=== PATIENT | male | born 1970 | race African-American/Black ===

== ENCOUNTER 2016-10-17 21:07 | Inpatient (IN) | payer MEDICAID ==
[~2016-10-17] VITALS: Ht 170.2 cm; Wt 53.1 kg
[2016-10-17] MEDS ORDERED: IPRATROPIUM BROMIDE (0.02%) 0.5MG/2.5ML NEB HHN ONE (21:15)
[2016-10-17] MEDS ORDERED: ALBUTEROL (0.5%) 2.5MG/0.5ML NEB HHN ONE (21:15)
[2016-10-17] MEDS ORDERED: METHYLPREDNISOLONE SOD SUCC 125 MG/2 ML VIAL IV ONE (21:15)
[2016-10-17] MEDS ORDERED: KETAMINE HCL 50 MG/ML 10ML IV ONE (21:15)
[2016-10-17] MEDS ORDERED: MAGNESIUM 2 G PREMIX 50 ML IV ONE (21:15)
[2016-10-17 21:58] LABS: BG BASE EXCESS -6.2 mmol/L (-2.0-2.0); BG BILEVEL POS AIRWAY PRESSURE 20/8; BG CARBOXYHEMOGLOBIN 1.9 % (0.5-1.5); BG DEOXYHEMOGLOBIN 6.3 % (0.0-5.0); BG FRACTION INSPIRED OXYGEN 100; BG HCO3 ACT 19.5 mmol/L (22.0-26.0); BG METHEMOGLOBIN 0.4 % (0.0-1.5); BG OXYGEN SATURATION 93.6 % (92.0-98.5); BG OXYHEMOGLOBIN 91.4 % (94.0-97.0); BG PCO2 39.4 mmHg (35.0-45.0); BG PH 7.313 (7.350-7.450); BG PO2 76.4 mmHg (75.0-100.0); BG SAMPLE SITE RIGHT RADIAL; BG TOTAL HEMOGLOBIN 13.5 g/dL (12.0-18.0); BG VENT MODE MASK - BIPAP; BG VENT RATE 18 set
[2016-10-17] MEDS ORDERED: LORAZEPAM 2MG/ML CPJ IV ONE (22:45)
[2016-10-17 23:00] LABS: HEMATOCRIT. 37.5 % (42.0-52.0); HEMOGLOBIN. 12.3 g/dL (14.0-18.0); MEAN CORPUSCULAR HEMOGLOBIN 27.2 pg (28.0-32.0); MEAN CORPUSCULAR HGB CONC 32.8 g/dL (31.0-37.0); MEAN CORPUSCULAR VOLUME 82.9 fL (80.0-94.0); MEAN PLATELET VOLUME 7.2 fl (7.4-10.4); PLATELET 561 x1000/uL (130-400); RED BLOOD CELL COUNT 4.52 mill/uL (4.7-6.1); RED CELL DISTRIBUTION WIDTH 16.1 % (11.6-14.6); WHITE BLOOD COUNT 20.8 x1000/uL (4.5-11.0)
[2016-10-17 23:03] LABS: CALCIUM 8.6 mg/dL (8.5-10.1); CHLORIDE 99 mEq/L (98-107); DIFFERENTIAL COMMENT 1; INDEX HEMOLYSI 1 (1-3); INDEX ICTERIC 1 (1-4); INDEX LIPEMIC 1 (1-3)
[2016-10-17 23:04] LABS: ANION GAP 18; CARBON DIOXIDE 23 mEq/L (21-32); UREA NITROGEN BLOOD 14 mg/dL (7-21)
[2016-10-17 23:12] LABS: NT PRO B-TYPE NATRIURETIC PEP 30161 pg/mL (5-125); TROPONIN I 0.03 ng/mL (0.00-0.04); eGFR > 60 mL/min (>60)
[2016-10-17] MEDS ORDERED: CLONIDINE 0.2MG TABLET PO NR (23:15)
[2016-10-17] MEDS ORDERED: LEVOFLOXACIN 500MG PREMIX 100 ML IV NR (23:15)
[2016-10-17] MEDS ORDERED: MEROPENEM 1,000 MG in SODIUM CHLORIDE 0.9% 100 ML IV NR (23:15)
[2016-10-17] MEDS ORDERED: NITROGLYCERIN OINT 1GM/INCH UDPKT TD NR (23:15)
[2016-10-17 23:19] LABS: ANISOCYTOSIS 1+; PLATELET ESTIMATE INCREASED
[2016-10-17] MEDS ORDERED: FUROSEMIDE 40MG/4ML VIAL IVP NR (23:30)
[2016-10-17] MEDS ORDERED: NITROGLYCERIN 50MG PREMIX 250 ML IV ONE (23:45)
[2016-10-18] VITALS (60 sets, daily range): BP systolic 108–177; BP diastolic 37–136
[2016-10-18] MEDS ORDERED: LEVOFLOXACIN 500MG PREMIX 100 ML IV SCH (01:15)
[2016-10-18] MEDS ORDERED: AZITHROMYCIN 500 MG in DEXT 5% WATER 250 ML IV SCH (01:15)
[2016-10-18] MEDS ORDERED: CLONIDINE 0.1MG TABLET PO PRN (01:15)
[2016-10-18] MEDS ORDERED: MAGNESIUM/ALUMINUM HYDROXIDE/SIMETHICONE 30ML UDC PO PRN (01:15)
[2016-10-18] MEDS ORDERED: ACETAMINOPHEN 325MG TABLET PO PRN (01:15)
[2016-10-18 01:21] LABS: MAGNESIUM 2.1 mg/dL (1.8-2.4)
[2016-10-18] MEDS: METHYLPREDNISOLONE SOD SUCC 125 MG/2 ML VIAL IV SCH ×4 (04:24→18:10)
[2016-10-18 05:20] LABS: HEMATOCRIT. 36.6 % (42.0-52.0); HEMOGLOBIN. 12.1 g/dL (14.0-18.0); MEAN CORPUSCULAR HEMOGLOBIN 26.7 pg (28.0-32.0); MEAN CORPUSCULAR VOLUME 81.1 fL (80.0-94.0); MEAN PLATELET VOLUME 7.2 fl (7.4-10.4); PLATELET 591 x1000/uL (130-400); RED BLOOD CELL COUNT 4.52 mill/uL (4.7-6.1); RED CELL DISTRIBUTION WIDTH 15.5 % (11.6-14.6); WHITE BLOOD COUNT 38.6 x1000/uL (4.5-11.0)
[2016-10-18 05:24] LABS: DIFFERENTIAL COMMENT 1
[2016-10-18 05:48] LABS: CREATINE KINASE MB FRACTION 1.1 ng/mL (0.5-3.6); TROPONIN I 0.04 ng/mL (0.00-0.04)
[2016-10-18 05:53] LABS: ALANINE AMINOTRANSFERASE 44 IU/L (13-61); CALCIUM 8.8 mg/dL (8.5-10.1); CARBON DIOXIDE 27 mEq/L (21-32); HDL CHOLESTEROL 49 mg/dL (40-59); INDEX HEMOLYSI 1 (1-3); INDEX ICTERIC 1 (1-4); INDEX LIPEMIC 1 (1-3); LDL CHOLESTEROL 92 mg/dL (5-100); UREA NITROGEN BLOOD 14 mg/dL (7-21); eGFR > 60 mL/min (>60)
[2016-10-18 06:26] LABS: ANION GAP 16; CHLORIDE 97 mEq/L (98-107); THYROID STIMULATING HORMONE 0.11 uIU/mL (0.36-3.74); TRIGLYCERIDE 83 mg/dL (0-150)
[2016-10-18 07:04] LABS: ANISOCYTOSIS 1+; PLATELET ESTIMATE INCREASED
[2016-10-18 07:58] LABS: BG CARBOXYHEMOGLOBIN 0.6 % (0.5-1.5); BG FRACTION INSPIRED OXYGEN 100; BG HCO3 ACT 25.4 mmol/L (22.0-26.0); BG METHEMOGLOBIN 0.2 % (0.0-1.5); BG OXYHEMOGLOBIN 99.2 % (94.0-97.0); BG PH 7.467 (7.350-7.450); BG PRESSURE SUPPORT 12; BG SAMPLE SITE RIGHT BRACHIAL; BG TOTAL HEMOGLOBIN 13.1 g/dL (12.0-18.0); BG VENT MODE MASK - BIPAP; BG VENT RATE 20 set
[2016-10-18] MEDS ORDERED: FUROSEMIDE 100MG/10ML VIAL IVP ONE (08:15)
[2016-10-18] MEDS ORDERED: LISINOPRIL 20MG TABLET PO SCH (10:15)
[2016-10-18] MEDS ORDERED: FUROSEMIDE 40MG/4ML VIAL IV SCH (10:15)
[2016-10-18] MEDS ORDERED: AZITHROMYCIN XX SCH (10:15)
[2016-10-18] MEDS: ASPIRIN 81MG EC TABLET PO SCH (10:27)
[2016-10-18 10:30] LABS: BG BASE EXCESS 4.2 mmol/L (-2.0-2.0); BG BILEVEL POS AIRWAY PRESSURE 20/8; BG CARBOXYHEMOGLOBIN 0.2 % (0.5-1.5); BG DEOXYHEMOGLOBIN 0.2 % (0.0-5.0); BG HCO3 ACT 27.9 mmol/L (22.0-26.0); BG METHEMOGLOBIN 0.4 % (0.0-1.5); BG OXYGEN SATURATION 99.8 % (92.0-98.5); BG OXYHEMOGLOBIN 99.2 % (94.0-97.0); BG PCO2 38.4 mmHg (35.0-45.0); BG PH 7.479 (7.350-7.450); BG PO2 460.9 mmHg (75.0-100.0); BG SAMPLE SITE RIGHT BRACHIAL; BG TOTAL HEMOGLOBIN 12.9 g/dL (12.0-18.0); BG VENT MODE MASK - BIPAP; BG VENT RATE 20 set
[2016-10-18] MEDS: ENOXAPARIN 40MG/0.4ML SYR SUBCUT SCH (10:30)
[2016-10-18] MEDS ORDERED: VANCOMYCIN 1 G PREMIX 200 ML IV SCH (10:45)
[2016-10-18] MEDS ORDERED: POTASSIUM CHLORIDE 20MEQ TABLET SR PO NR (11:00)
[2016-10-18] MEDS ORDERED: LORAZEPAM 2MG/ML CPJ IV PRN (11:00)
[2016-10-18] MEDS ORDERED: LISINOPRIL (11:05)
[2016-10-18] MEDS ORDERED: CLONIDINE (11:05)
[2016-10-18] MEDS ORDERED: XANAX (11:05)
[2016-10-18] MEDS ORDERED: NORCO (11:05)
[2016-10-18] MEDS: IPRATROPIUM/ALBUTEROL 0.5-3(2.5)MG/3ML NEB INH PRN ×2 (11:21→15:31)
[2016-10-18] MEDS ORDERED: DEXTROSE 50% WATER 50ML SYRINGE IV PRN (11:45)
[2016-10-18] MEDS: AZITHROMYCIN 500 MG in DEXT 5% WATER 250 ML IV SCH (11:48)
[2016-10-18] MEDS ORDERED: DILTIAZEM HCL 60MG TABLET PO SCH (12:00)
[2016-10-18] MEDS: INSULIN LISPRO 100 UNITS/ML SUBCUT SCH ×3 (12:18→21:08)
[2016-10-18] MEDS: BLOOD SUGAR DIAGNOSTIC STRIP TEST SCH ×3 (12:50→20:23)
[2016-10-18 13:07] LABS: MAGNESIUM 1.6 mg/dL (1.8-2.4)
[2016-10-18 13:08] LABS: CLARITY URINE CLEAR (CLEAR); COLOR URINE YELLOW (YELLOW); GLUCOSE URINE NEGATIVE (NEGATIVE); KETONES URINE NEGATIVE (NEGATIVE); LEUKOCYTE ESTERASE URINE NEGATIVE (NEGATIVE); NITRITE URINE NEGATIVE (NEGATIVE); OCCULT BLOOD URINE TRACE (NEGATIVE); PH URINE 7.5 (4.5-8.0); PROTEIN URINE NEGATIVE (NEGATIVE); SPECIFIC GRAVITY URINE 1.007 (1.005-1.030); UROBILINOGEN URINE 0.2 E.U./dL (0.2-1.0)
[2016-10-18 13:18] LABS: LACTIC ACID 2.3 mmol/L (0.4-2.0)
[2016-10-18 13:24] LABS: SQUAMOUS EPITHELIAL CELL URINE NONE SEEN /lpf (RARE/1+)
[2016-10-18 13:25] LABS: BACTERIA URINE TRACE; WBC URINE 0-2 /hpf (0-2)
[2016-10-18 13:34] LABS: *AMPHETAMINES SCREEN URINE NEGATIVE (NEGATIVE); *BARBITURATES SCREEN URINE NEGATIVE (NEGATIVE); *BENZODIAZEPINES SCREEN URINE NEGATIVE (NEGATIVE); *COCAINE SCREEN URINE NEGATIVE (NEGATIVE); CANNABINOID URINE SCREEN NEGATIVE (NEGATIVE); ECSTASY MDMA SCREEN URINE NEGATIVE (NEGATIVE); METHADONE URINE SCREEN NEGATIVE (NEGATIVE); OPIATES URINE SCREEN NEGATIVE (NEGATIVE); PHENCYCLIDINE URINE SCREEN NEGATIVE (NEGATIVE)
[2016-10-18] MEDS: VANCOMYCIN 1 G PREMIX 200 ML IV SCH ×2 (13:45→21:07)
[2016-10-18] MEDS ORDERED: MAGNESIUM 2 G PREMIX 50 ML IV NR (14:45)
[2016-10-18] MEDS: NITROGLYCERIN 50MG PREMIX 250 ML IV PRN ×2 (15:26→21:42)
[2016-10-18 17:02] LABS: CREATINE KINASE 31 IU/L (39-308); CREATINE KINASE MB FRACTION < 0.5 ng/mL (0.5-3.6); INDEX HEMOLYSI 1 (1-3); TROPONIN I 0.05 ng/mL (0.00-0.04)
[2016-10-18] MEDS ORDERED: METOCLOPRAMIDE HCL 10MG/2ML VIAL IV SCH (18:00)
[2016-10-18] MEDS: DILTIAZEM HCL 90MG TABLET PO SCH ×2 (18:11→23:34)
[2016-10-18] MEDS: HYDRALAZINE HCL 50MG TABLET PO SCH ×2 (18:11→21:06)
[2016-10-18] MEDS ORDERED: LEVOFLOXACIN 750MG PREMIX 150 ML IV SCH (21:00)
[2016-10-18] MEDS: LISINOPRIL 20MG TABLET PO SCH (21:06)
[2016-10-18] MEDS ORDERED: METHYLPREDNISOLONE SOD SUCC 125 MG/2 ML VIAL IV SCH (22:00)
[2016-10-18] MEDS: AZTREONAM 2 GM in DEXT 5% WATER 100 ML IV SCH (23:33)
[2016-10-18] MEDS: SULFAMETHOXAZOLE/TRIMETHOPRIM 800/160MG TABLET PO SCH (23:44)
[2016-10-19] VITALS (56 sets, daily range): BP systolic 96–150; BP diastolic 38–89
[2016-10-19] MEDS: METHYLPREDNISOLONE SOD SUCC 125 MG/2 ML VIAL IV SCH ×3 (02:47→09:01)
[2016-10-19 05:31] LABS: HEMATOCRIT. 33.1 % (42.0-52.0); HEMOGLOBIN. 10.9 g/dL (14.0-18.0); MEAN CORPUSCULAR HEMOGLOBIN 26.8 pg (28.0-32.0); MEAN CORPUSCULAR HGB CONC 33.1 g/dL (31.0-37.0); MEAN CORPUSCULAR VOLUME 81.1 fL (80.0-94.0); MEAN PLATELET VOLUME 7.8 fl (7.4-10.4); PLATELET 539 x1000/uL (130-400); RED BLOOD CELL COUNT 4.08 mill/uL (4.7-6.1); RED CELL DISTRIBUTION WIDTH 15.7 % (11.6-14.6); WHITE BLOOD COUNT 26.2 x1000/uL (4.5-11.0)
[2016-10-19] MEDS: DILTIAZEM HCL 90MG TABLET PO SCH ×2 (05:33→11:19)
[2016-10-19] MEDS: VANCOMYCIN 1 G PREMIX 200 ML IV SCH ×3 (05:33→23:08)
[2016-10-19 05:34] LABS: DIFFERENTIAL COMMENT 1
[2016-10-19] MEDS: SULFAMETHOXAZOLE/TRIMETHOPRIM 800/160MG TABLET PO SCH ×4 (05:34→23:19)
[2016-10-19] MEDS: HYDRALAZINE HCL 50MG TABLET PO SCH ×3 (05:34→22:00)
[2016-10-19 05:56] LABS: ALBUMIN 2.8 g/dL (3.4-5.0); ANION GAP 14; CALCIUM 8.5 mg/dL (8.5-10.1); CARBON DIOXIDE 31 mEq/L (21-32); CHLORIDE 90 mEq/L (98-107); INDEX HEMOLYSI 1 (1-3); INDEX ICTERIC 1 (1-4); INDEX LIPEMIC 1 (1-3); UREA NITROGEN BLOOD 23 mg/dL (7-21)
[2016-10-19 06:02] LABS: ALANINE AMINOTRANSFERASE 28 IU/L (13-61); T4 FREE 1.55 ng/dL (0.76-1.46); eGFR > 60 mL/min (>60)
[2016-10-19 07:30] LABS: PLATELET ESTIMATE INCREASED
[2016-10-19] MEDS: BLOOD SUGAR DIAGNOSTIC STRIP TEST SCH ×4 (08:00→21:09)
[2016-10-19] MEDS ORDERED: ATOVAQUONE 750MG/5ML PACKET PO SCH (08:20)
[2016-10-19 08:30] LABS: BG BASE EXCESS 4.7 mmol/L (-2.0-2.0); BG CARBOXYHEMOGLOBIN 0.8 % (0.5-1.5); BG DEOXYHEMOGLOBIN 7.3 % (0.0-5.0); BG FRACTION INSPIRED OXYGEN 21; BG HCO3 ACT 27.1 mmol/L (22.0-26.0); BG METHEMOGLOBIN 0.3 % (0.0-1.5); BG OXYGEN SATURATION 92.6 % (92.0-98.5); BG OXYHEMOGLOBIN 91.6 % (94.0-97.0); BG PCO2 32.9 mmHg (35.0-45.0); BG PH 7.533 (7.350-7.450); BG PO2 59.7 mmHg (75.0-100.0); BG SAMPLE SITE RIGHT RADIAL; BG TOTAL HEMOGLOBIN 12.4 g/dL (12.0-18.0); BG VENT MODE ROOM AIR
[2016-10-19] MEDS: LISINOPRIL 20MG TABLET PO SCH ×2 (09:00→21:13)
[2016-10-19] MEDS: AZTREONAM 2 GM in DEXT 5% WATER 100 ML IV SCH ×2 (09:00→21:49)
[2016-10-19] MEDS: PANTOPRAZOLE SODIUM 40 MG/VIAL IV SCH (09:01)
[2016-10-19] MEDS: ASPIRIN 81MG EC TABLET PO SCH (09:01)
[2016-10-19] MEDS: FUROSEMIDE 40MG/4ML VIAL IVP SCH (09:01)
[2016-10-19] MEDS: INSULIN LISPRO 100 UNITS/ML SUBCUT SCH ×4 (09:02→21:00)
[2016-10-19] MEDS: ENOXAPARIN 40MG/0.4ML SYR SUBCUT SCH (09:03)
[2016-10-19] MEDS ORDERED: POTASSIUM CHLORIDE 20MEQ TABLET SR PO NR (10:30)
[2016-10-19] MEDS: AZITHROMYCIN 500 MG in DEXT 5% WATER 250 ML IV SCH (11:18)
[2016-10-19] MEDS: SPIRONOLACTONE 25MG TABLET PO SCH (12:59)
[2016-10-19] MEDS: CARVEDILOL 25MG TABLET PO SCH (21:12)
[2016-10-20] VITALS (11 sets, daily range): BP systolic 94–126; BP diastolic 69–89
[2016-10-20] MEDS: HYDRALAZINE HCL 50MG TABLET PO SCH ×3 (05:50→22:00)
[2016-10-20] MEDS: SULFAMETHOXAZOLE/TRIMETHOPRIM 800/160MG TABLET PO SCH ×2 (05:50→11:21)
[2016-10-20 07:24] LABS: HEMATOCRIT. 33.3 % (42.0-52.0); HEMOGLOBIN. 11.1 g/dL (14.0-18.0); MEAN CORPUSCULAR HGB CONC 33.4 g/dL (31.0-37.0); MEAN PLATELET VOLUME 7.7 fl (7.4-10.4); PLATELET 494 x1000/uL (130-400); RED BLOOD CELL COUNT 4.11 mill/uL (4.7-6.1); RED CELL DISTRIBUTION WIDTH 15.9 % (11.6-14.6); WHITE BLOOD COUNT 18.3 x1000/uL (4.5-11.0)
[2016-10-20 07:26] LABS: ANION GAP 16; CALCIUM 8.1 mg/dL (8.5-10.1); CARBON DIOXIDE 27 mEq/L (21-32); CHLORIDE 90 mEq/L (98-107); INDEX HEMOLYSI 1 (1-3); INDEX ICTERIC 1 (1-4); INDEX LIPEMIC 1 (1-3); MAGNESIUM 2.5 mg/dL (1.8-2.4); UREA NITROGEN BLOOD 35 mg/dL (7-21); eGFR > 60 mL/min (>60)
[2016-10-20] MEDS: BLOOD SUGAR DIAGNOSTIC STRIP TEST SCH ×4 (07:30→21:18)
[2016-10-20] MEDS: INSULIN LISPRO 100 UNITS/ML SUBCUT SCH ×4 (07:43→21:18)
[2016-10-20 07:55] LABS: DIFFERENTIAL COMMENT 1
[2016-10-20] MEDS: SPIRONOLACTONE 25MG TABLET PO SCH (08:28)
[2016-10-20] MEDS: PREDNISONE 20MG TABLET PO SCH (08:28)
[2016-10-20] MEDS: ASPIRIN 81MG EC TABLET PO SCH (08:28)
[2016-10-20] MEDS: CARVEDILOL 25MG TABLET PO SCH ×2 (08:28→21:05)
[2016-10-20] MEDS: PANTOPRAZOLE SODIUM 40 MG/VIAL IV SCH (08:29)
[2016-10-20] MEDS: LISINOPRIL 20MG TABLET PO SCH ×2 (08:29→21:04)
[2016-10-20] MEDS: FUROSEMIDE 40MG/4ML VIAL IVP SCH (08:29)
[2016-10-20] MEDS: ENOXAPARIN 40MG/0.4ML SYR SUBCUT SCH (08:29)
[2016-10-20] MEDS: VANCOMYCIN 1 G PREMIX 200 ML IV SCH ×2 (09:01→21:04)
[2016-10-20] MEDS: AZTREONAM 2 GM in DEXT 5% WATER 100 ML IV SCH ×2 (10:02→22:46)
[2016-10-20] MEDS: AZITHROMYCIN 500 MG in DEXT 5% WATER 250 ML IV SCH (11:19)
[2016-10-20] MEDS: ONDANSETRON HCL 4MG/2ML VIAL IV PRN ×2 (13:19→21:04)
[2016-10-20] MEDS: MEGESTROL ACETATE 400 MG/10 ML UDC PO SCH (13:19)
[2016-10-20 16:59] LABS: ALBUMIN 2.8 g/dL (3.4-5.0); BILIRUBIN DIRECT 0.3 mg/dL (0.0-0.2)
[2016-10-20 17:25] LABS: HEPATITIS B SURFACE ANTIGEN NEGATIVE
[2016-10-20 17:52] LABS: HEPATITIS C VIR.AB 0.13 INDEXVAL (0.00-0.80)
[2016-10-20 17:53] LABS: HEPATITIS B CORE AB IGM NEGATIVE
[2016-10-20 17:54] LABS: HEPATITIS A AB IGM NEGATIVE (NEGATIVE)
[2016-10-20 18:51] LABS: PREALBUMIN 12.6 mg/dL (20.0-40.0)
[2016-10-20 19:37] LABS: PLATELET ESTIMATE INCREASED
[2016-10-21] VITALS (8 sets, daily range): BP systolic 100–129; BP diastolic 61–93
[2016-10-21] MEDS: HYDRALAZINE HCL 50MG TABLET PO SCH ×2 (06:09→14:00)
[2016-10-21 06:58] LABS: HEMATOCRIT. 37.7 % (42.0-52.0); HEMOGLOBIN. 12.6 g/dL (14.0-18.0); MEAN CORPUSCULAR HGB CONC 33.3 g/dL (31.0-37.0); MEAN CORPUSCULAR VOLUME 81.1 fL (80.0-94.0); MEAN PLATELET VOLUME 7.5 fl (7.4-10.4); PLATELET 513 x1000/uL (130-400); RED BLOOD CELL COUNT 4.65 mill/uL (4.7-6.1); WHITE BLOOD COUNT 15.1 x1000/uL (4.5-11.0)
[2016-10-21 07:23] LABS: DIFFERENTIAL COMMENT 1
[2016-10-21] MEDS: BLOOD SUGAR DIAGNOSTIC STRIP TEST SCH ×2 (07:30→11:44)
[2016-10-21] MEDS: INSULIN LISPRO 100 UNITS/ML SUBCUT SCH ×2 (07:46→12:08)
[2016-10-21 07:59] LABS: ANION GAP 13; CALCIUM 8.1 mg/dL (8.5-10.1); CARBON DIOXIDE 27 mEq/L (21-32); CHLORIDE 91 mEq/L (98-107); INDEX HEMOLYSI 1 (1-3); INDEX ICTERIC 1 (1-4); INDEX LIPEMIC 1 (1-3); UREA NITROGEN BLOOD 40 mg/dL (7-21); eGFR > 60 mL/min (>60)
[2016-10-21] MEDS ORDERED: FUROSEMIDE 40MG TABLET PO SCH (08:00)
[2016-10-21] MEDS: ENOXAPARIN 40MG/0.4ML SYR SUBCUT SCH (08:23)
[2016-10-21] MEDS: VANCOMYCIN 1 G PREMIX 200 ML IV SCH (08:23)
[2016-10-21] MEDS: MEGESTROL ACETATE 400 MG/10 ML UDC PO SCH (08:23)
[2016-10-21] MEDS: ASPIRIN 81MG EC TABLET PO SCH (08:24)
[2016-10-21] MEDS: PANTOPRAZOLE SODIUM 40 MG/VIAL IV SCH (08:24)
[2016-10-21] MEDS: PREDNISONE 20MG TABLET PO SCH (08:24)
[2016-10-21] MEDS: CARVEDILOL 25MG TABLET PO SCH (08:25)
[2016-10-21] MEDS: SPIRONOLACTONE 25MG TABLET PO SCH (08:25)
[2016-10-21] MEDS: LISINOPRIL 20MG TABLET PO SCH (08:25)
[2016-10-21] MEDS: ONDANSETRON HCL 4MG/2ML VIAL IV PRN (08:49)
[2016-10-21] MEDS: AZTREONAM 2 GM in DEXT 5% WATER 100 ML IV SCH (09:43)
[2016-10-21] MEDS: AZITHROMYCIN 500 MG in DEXT 5% WATER 250 ML IV SCH (10:56)
[2016-10-21] MEDS ORDERED: DEXT 5% WATER 250 ML IV ONE (11:15)
[2016-10-21 13:15] LABS: PLATELET ESTIMATE INCREASED
== END 2016-10-21 15:20 | disposition left against medical advice (07) | DRG 720 ==
LOC: ER 21:10 → CVICU 10-18 01:05 → 5EST 10-19 22:45
PROVIDERS: ADMIT Internal Medicine; ATTEND Internal Medicine
PROC: 5A09457 Assistance with Respiratory Ventilation, 24-96 Consecutive Hours, Continuous Positive Airway Pressure (ICD-10-PCS; principal; 2016-10-18)
DX: A41.9 Sepsis, unspecified organism (principal); J96.21 Acute and chronic respiratory failure with hypoxia; E43 Unspecified severe protein-calorie malnutrition; I50.23 Acute on chronic systolic (congestive) heart failure; I11.0 Hypertensive heart disease with heart failure; J18.9 Pneumonia, unspecified organism; I42.9 Cardiomyopathy, unspecified; J45.909 Unspecified asthma, uncomplicated; J44.0 Chronic obstructive pulmonary disease with (acute) lower respiratory infection; E03.9 Hypothyroidism, unspecified; E11.65 Type 2 diabetes mellitus with hyperglycemia; F41.9 Anxiety disorder, unspecified; E87.1 Hypo-osmolality and hyponatremia; F11.90 Opioid use, unspecified, uncomplicated; J44.9 Chronic obstructive pulmonary disease, unspecified; T38.0X5A Adverse effect of glucocorticoids and synthetic analogues, initial encounter; Z53.21 Procedure and treatment not carried out due to patient leaving prior to being seen by health care provider; R00.0 Tachycardia, unspecified; Z68.1 Body mass index [BMI] 19.9 or less, adult; Z91.19 Patient's noncompliance with other medical treatment and regimen; Z72.0 Tobacco use
CPT/HCPCS: 36415; 36600; 51702; 71010; 74000; 78580; 80048; 80053; 80061; 80076; 80202; 80305; 81001; 82248; 82375; 82550; 82553; 82805; 82962; 83036; 83605; 83690; 83735; 83880; 84134; 84439; 84443; 84481; 84484; 85025; 85379; 86705; 86709; 86803; 87040; 87186; 87340; 87536; 93005; 93306; 93970; 94640; 94660; 96365; 96366; 96367; 96368; 96375; 97116; 97162; 97166; 99291; A6261; C9113; J0456; J1650; J1815; J1940; J1956; J2060; J2185; J2405; J2930; J3370; J3475; J3490; J7050; J7060; J7512; J7611; J7620

== ENCOUNTER 2018-07-06 02:39 | Inpatient (IN) | payer MEDICAID ==
[~2018-07-06] VITALS: Ht 175.3 cm; Wt 54.9 kg
[2018-07-06] VITALS (8 sets, daily range): BP systolic 129–158; BP diastolic 72–107
[~2018-07-06 02:39] MED LIST: CLONIDINE; LISINOPRIL; NORCO; XANAX
[2018-07-06] MEDS ORDERED: IPRATROPIUM BROMIDE (0.02%) 0.5MG/2.5ML NEB HHN STA (03:35)
[2018-07-06] MEDS ORDERED: METHYLPREDNISOLONE SOD SUCC 125 MG/2 ML VIAL IV STA (03:35)
[2018-07-06] MEDS ORDERED: ALBUTEROL (0.083%) 2.5MG/3ML NEB HHN STA (03:35)
[2018-07-06] MEDS ORDERED: SODIUM CHLORIDE 0.9% 1000ML BAG (SEPSIS BOLUS) IV ONE (03:45)
[2018-07-06] MEDS ORDERED: MAGNESIUM 2 G PREMIX 50 ML IV ONE (03:45)
[2018-07-06] MEDS ORDERED: ACETAMINOPHEN 500MG TABLET PO STA (04:26)
[2018-07-06] MEDS ORDERED: LEVOFLOXACIN 750MG PREMIX 150 ML IV ONE (04:30)
[2018-07-06] MEDS ORDERED: FUROSEMIDE 40MG/4ML VIAL IVP ONE (04:30)
[2018-07-06] MEDS ORDERED: AZTREONAM 2 GM in DEXT 5% WATER 100 ML IV ONE (04:30)
[2018-07-06 04:34] LABS: BASOPHILS % 0.9 % (0.0-2.0); EOSINOPHILS % 2.9 % (0.0-5.0); HEMATOCRIT. 39.1 % (42.0-52.0); LYMPHOCYTES % 10.7 % (20.0-50.0); MEAN CORPUSCULAR HEMOGLOBIN 29.6 pg (28.0-32.0); MEAN CORPUSCULAR VOLUME 88.7 fL (80.0-94.0); MEAN PLATELET VOLUME 8.6 fl (7.4-10.4); MONOCYTES % 8.1 % (2.0-8.0); NEUTROPHILS % 77.4 % (40.0-76.0); PLATELET 332 x1000/uL (130-400); RED CELL DISTRIBUTION WIDTH 13.2 % (11.6-14.6)
[2018-07-06 04:41] LABS: CHLORIDE 108 mEq/L (98-107); INR 1.1; PROTHROMBIN TIME 10.6 sec (9.1-11.1)
[2018-07-06 04:46] LABS: ETHANOL BLOOD < 10 mg/dL
[2018-07-06] MEDS ORDERED: MORPHINE SULFATE 2 MG/ML CPJ (NOT FOR IM USE) IV ONE (05:00)
[2018-07-06] MEDS ORDERED: MORPHINE SULFATE 4 MG/ML CPJ (NOT FOR IM USE) IV ONE (05:45)
[2018-07-06] MEDS ORDERED: MORPHINE SULFATE 4 MG/ML CPJ (NOT FOR IM USE) IV SCH (05:45)
[2018-07-06 06:02] LABS: *AMPHETAMINES SCREEN URINE NEGATIVE (NEGATIVE)
[2018-07-06 06:03] LABS: *BARBITURATES SCREEN URINE NEGATIVE (NEGATIVE); *COCAINE SCREEN URINE PRESUMTIVE POSITIVE (NEGATIVE); METHADONE URINE SCREEN NEGATIVE (NEGATIVE); OPIATES URINE SCREEN NEGATIVE (NEGATIVE)
[2018-07-06 06:04] LABS: CANNABINOID URINE SCREEN PRESUMTIVE POSITIVE (NEGATIVE); PHENCYCLIDINE URINE SCREEN NEGATIVE (NEGATIVE)
[2018-07-06 06:07] LABS: *BENZODIAZEPINES SCREEN URINE NEGATIVE (NEGATIVE)
[2018-07-06 06:13] LABS: CLARITY URINE CLEAR (CLEAR); COLOR URINE DARK YELLOW (YELLOW); KETONES URINE TRACE (NEGATIVE); LEUKOCYTE ESTERASE URINE NEGATIVE (NEGATIVE); NITRITE URINE NEGATIVE (NEGATIVE); OCCULT BLOOD URINE NEGATIVE (NEGATIVE); PH URINE 5.5 (4.5-8.0); PROTEIN URINE 2+ (NEGATIVE); SPECIFIC GRAVITY URINE 1.028 (1.005-1.030)
[2018-07-06] MEDS ORDERED: DOCUSATE SODIUM 100MG CAPSULE PO PRN (09:45)
[2018-07-06] MEDS ORDERED: GUAIFENESIN 200MG/10ML SUGAR FREE UDC PO PRN (09:45)
[2018-07-06] MEDS ORDERED: CLONIDINE 0.1MG TABLET PO PRN (09:45)
[2018-07-06] MEDS ORDERED: IPRATROPIUM/ALBUTEROL 0.5-3(2.5)MG/3ML NEB INH PRN (09:45)
[2018-07-06] MEDS ORDERED: MAGNESIUM/ALUMINUM HYDROXIDE/SIMETHICONE 30ML UDC PO PRN (09:45)
[2018-07-06] MEDS ORDERED: DIPHENHYDRAMINE 50MG/ML VIAL IV PRN (09:45)
[2018-07-06] MEDS ORDERED: ACETAMINOPHEN 325MG TABLET PO PRN (09:45)
[2018-07-06] MEDS ORDERED: ONDANSETRON HCL 4MG/2ML INJ IV PRN (09:45)
[2018-07-06] MEDS: PANTOPRAZOLE SODIUM 40 MG/VIAL IV SCH (11:04)
[2018-07-06] MEDS: ASPIRIN 81MG EC TABLET PO SCH (11:04)
[2018-07-06] MEDS: FUROSEMIDE 40MG/4ML VIAL IVP SCH (11:04)
[2018-07-06] MEDS: LISINOPRIL 10MG TABLET PO SCH (11:04)
[2018-07-06] MEDS: ENOXAPARIN 40MG/0.4ML SYR SUBCUT SCH (11:05)
[2018-07-06 16:11] LABS: CHLORIDE 102 mEq/L (98-107)
[2018-07-06] MEDS: NICOTINE 14MG PATCH TD SCH (16:35)
[2018-07-06] MEDS ORDERED: AZITHROMYCIN 500 MG TABLET PO NR (16:45)
[2018-07-06] MEDS: IPRATROPIUM/ALBUTEROL 0.5-3(2.5)MG/3ML NEB HHN SCH (20:24)
[2018-07-06] MEDS: BUDESONIDE 0.5MG/2ML NEB HHN SCH (20:24)
[2018-07-07] VITALS (11 sets, daily range): BP systolic 119–186; BP diastolic 64–109
[2018-07-07] MEDS: IPRATROPIUM/ALBUTEROL 0.5-3(2.5)MG/3ML NEB HHN SCH ×4 (01:57→20:10)
[2018-07-07 05:52] LABS: BASOPHILS % 0.2 % (0.0-2.0); EOSINOPHILS % 0.4 % (0.0-5.0); HEMATOCRIT. 34.4 % (42.0-52.0); HEMOGLOBIN. 11.9 g/dL (14.0-18.0); LYMPHOCYTES % 12.1 % (20.0-50.0); MEAN CORPUSCULAR HEMOGLOBIN 29.9 pg (28.0-32.0); MEAN CORPUSCULAR VOLUME 86.4 fL (80.0-94.0); MEAN PLATELET VOLUME 8.5 fl (7.4-10.4); MONOCYTES % 11.6 % (2.0-8.0); NEUTROPHILS % 75.7 % (40.0-76.0); PLATELET 349 x1000/uL (130-400); RED BLOOD CELL COUNT 3.98 mill/uL (4.7-6.1); RED CELL DISTRIBUTION WIDTH 13.3 % (11.6-14.6)
[2018-07-07] MEDS: BUDESONIDE 0.5MG/2ML NEB HHN SCH ×2 (07:59→20:10)
[2018-07-07] MEDS: PANTOPRAZOLE SODIUM 40 MG/VIAL IV SCH (08:54)
[2018-07-07] MEDS: ASPIRIN 81MG EC TABLET PO SCH (08:54)
[2018-07-07] MEDS: FUROSEMIDE 40MG/4ML VIAL IVP SCH (08:54)
[2018-07-07] MEDS: LISINOPRIL 10MG TABLET PO SCH (08:54)
[2018-07-07] MEDS: AZITHROMYCIN 250 MG TABLET PO SCH (08:54)
[2018-07-07] MEDS: NICOTINE 14MG PATCH TD SCH (08:55)
[2018-07-07] MEDS ORDERED: POTASSIUM CHLORIDE 20MEQ TABLET SR PO NR (11:45)
[2018-07-07] MEDS: ENOXAPARIN 40MG/0.4ML SYR SUBCUT SCH (12:07)
[2018-07-07] MEDS: HYDRALAZINE HCL 25MG TABLET PO SCH ×2 (15:32→20:34)
[2018-07-07] MEDS: AMLODIPINE 5MG TABLET PO SCH (20:34)
[2018-07-08] VITALS (8 sets, daily range): BP systolic 112–155; BP diastolic 72–104
[2018-07-08] MEDS: IPRATROPIUM/ALBUTEROL 0.5-3(2.5)MG/3ML NEB HHN SCH ×2 (02:24→07:37)
[2018-07-08] MEDS: HYDRALAZINE HCL 25MG TABLET PO SCH (06:28)
[2018-07-08 06:32] LABS: EOSINOPHILS % 2.2 % (0.0-5.0); HEMATOCRIT. 35.8 % (42.0-52.0); HEMOGLOBIN. 12.1 g/dL (14.0-18.0); LYMPHOCYTES % 17.1 % (20.0-50.0); MEAN CORPUSCULAR HEMOGLOBIN 29.7 pg (28.0-32.0); MEAN CORPUSCULAR VOLUME 87.7 fL (80.0-94.0); MEAN PLATELET VOLUME 8.8 fl (7.4-10.4); MONOCYTES % 9.4 % (2.0-8.0); NEUTROPHILS % 70.3 % (40.0-76.0); PLATELET 399 x1000/uL (130-400); RED BLOOD CELL COUNT 4.08 mill/uL (4.7-6.1); RED CELL DISTRIBUTION WIDTH 13.4 % (11.6-14.6)
[2018-07-08 06:54] LABS: CHLORIDE 108 mEq/L (98-107)
[2018-07-08 07:03] LABS: T4 FREE 1.59 ng/dL (0.76-1.46)
[2018-07-08] MEDS: BUDESONIDE 0.5MG/2ML NEB HHN SCH (07:37)
[2018-07-08] MEDS: NICOTINE 14MG PATCH TD SCH (09:25)
[2018-07-08] MEDS: AZITHROMYCIN 250 MG TABLET PO SCH (09:25)
[2018-07-08] MEDS: AMLODIPINE 5MG TABLET PO SCH (09:25)
[2018-07-08] MEDS: ASPIRIN 81MG EC TABLET PO SCH (09:25)
[2018-07-08] MEDS: PANTOPRAZOLE SODIUM 40 MG/VIAL IV SCH (09:26)
[2018-07-08] MEDS ORDERED: FUROSEMIDE 20MG TABLET PO SCH (09:30)
[2018-07-08] MEDS ORDERED: NIFEDIPINE XL 60MG TAB PO SCH (10:00)
[2018-07-08] MEDS: ENOXAPARIN 40MG/0.4ML SYR SUBCUT SCH (10:40)
[2018-07-08] MEDS ORDERED: HYDRALAZINE HCL 25MG TABLET PO SCH (14:00)
[2018-07-08] MEDS ORDERED: CLONIDINE 0.1MG TABLET PO SCH (14:00)
== END 2018-07-08 12:55 | disposition home or self-care (01) | DRG 816 ==
LOC: ER 02:53 → 5EST 04:58 → EDBEDREQ 05:08 → ENRESERV 07:34 → 5EST 09:14
PROVIDERS: ADMIT Family Medicine Adult Medicine; ATTEND Family Medicine Adult Medicine
DX: T40.5X1A Poisoning by cocaine, accidental (unintentional), initial encounter (principal); J96.00 Acute respiratory failure, unspecified whether with hypoxia or hypercapnia; A41.9 Sepsis, unspecified organism; I50.23 Acute on chronic systolic (congestive) heart failure; I42.0 Dilated cardiomyopathy; I11.0 Hypertensive heart disease with heart failure; J68.0 Bronchitis and pneumonitis due to chemicals, gases, fumes and vapors; F12.10 Cannabis abuse, uncomplicated; F14.10 Cocaine abuse, uncomplicated; E05.90 Thyrotoxicosis, unspecified without thyrotoxic crisis or storm; E87.6 Hypokalemia; F17.210 Nicotine dependence, cigarettes, uncomplicated; Z91.14 Patient's other noncompliance with medication regimen; Z91.19 Patient's noncompliance with other medical treatment and regimen; Z88.0 Allergy status to penicillin; Z79.899 Other long term (current) drug therapy; Y92.89 Other specified places as the place of occurrence of the external cause; Z71.6 Tobacco abuse counseling
CPT/HCPCS: 36415; 71045; 78582; 80048; 80305; 83605; 83735; 83880; 84145; 84439; 84443; 84481; 84484; 87804; 93005; 93306; 93970; 94640; 96374; 96375; 99291; A6261; A9558; C9113; G0482; J1650; J1940; J1956; J2270; J2930; J3475; J3490; J7030; J7060; J7611; J7620; J7626

== ENCOUNTER 2018-08-16 17:59 | Inpatient (IN) | payer MEDICAID ==
[~2018-08-16] VITALS: Ht 175.3 cm; Wt 54.4 kg
[2018-08-16] MEDS ORDERED: ONDANSETRON HCL 4MG/2ML INJ IV STA (22:50)
[2018-08-16] MEDS ORDERED: SODIUM CHLORIDE 0.9% 1,000 ML IV ONE (23:07)
[2018-08-16 23:26] LABS: BG CARBOXYHEMOGLOBIN 0.8 % (0.5-1.5); BG DEOXYHEMOGLOBIN 3.3 % (0.0-5.0); BG FRACTION INSPIRED OXYGEN 24; BG HCO3 ACT 26.9 mmol/L (22.0-26.0); BG METHEMOGLOBIN 0.1 % (0.0-1.5); BG OXYGEN SATURATION 96.7 % (92.0-98.5); BG OXYHEMOGLOBIN 95.8 % (94.0-97.0); BG PH 7.504 (7.350-7.450); BG PO2 87.5 mmHg (75.0-100.0); BG SAMPLE SITE RIGHT RADIAL; BG TOTAL HEMOGLOBIN 13.6 g/dL (12.0-18.0); BG VENT MODE NASAL CANNULA
[2018-08-17 00:11] LABS: HEMATOCRIT. 41.7 % (42.0-52.0); HEMOGLOBIN. 14.9 g/dL (14.0-18.0); MEAN CORPUSCULAR HEMOGLOBIN 30.4 pg (28.0-32.0); MEAN CORPUSCULAR VOLUME 85.3 fL (80.0-94.0); MEAN PLATELET VOLUME 8.2 fl (7.4-10.4); PLATELET 409 x1000/uL (130-400); RED BLOOD CELL COUNT 4.89 mill/uL (4.7-6.1); RED CELL DISTRIBUTION WIDTH 13.4 % (11.6-14.6)
[2018-08-17 00:16] LABS: CHLORIDE 96 mEq/L (98-107)
[2018-08-17 00:20] LABS: ETHANOL BLOOD < 10 mg/dL
[2018-08-17 01:00] LABS: PLATELET ESTIMATE NORMAL
[2018-08-17] MEDS ORDERED: IPRATROPIUM BROMIDE (0.02%) 0.5MG/2.5ML NEB HHN STA (01:11)
[2018-08-17] MEDS ORDERED: ALBUTEROL (0.083%) 2.5MG/3ML NEB HHN STA (01:11)
[2018-08-17 01:41] LABS: *AMPHETAMINES SCREEN URINE NEGATIVE (NEGATIVE); *BARBITURATES SCREEN URINE NEGATIVE (NEGATIVE)
[2018-08-17 01:42] LABS: *BENZODIAZEPINES SCREEN URINE NEGATIVE (NEGATIVE); *COCAINE SCREEN URINE PRESUMTIVE POSITIVE (NEGATIVE); CANNABINOID URINE SCREEN PRESUMTIVE POSITIVE (NEGATIVE); METHADONE URINE SCREEN NEGATIVE (NEGATIVE); OPIATES URINE SCREEN NEGATIVE (NEGATIVE); PHENCYCLIDINE URINE SCREEN NEGATIVE (NEGATIVE)
[2018-08-17] MEDS ORDERED: HYDRALAZINE 20MG/ML VIAL IV ONE (02:00)
[2018-08-17] MEDS ORDERED: IPRATROPIUM/ALBUTEROL 0.5-3(2.5)MG/3ML NEB INH PRN (08:00)
[2018-08-17] MEDS ORDERED: GUAIFENESIN 200MG/10ML SUGAR FREE UDC PO PRN (08:00)
[2018-08-17] MEDS ORDERED: DOCUSATE SODIUM 100MG CAPSULE PO PRN (08:00)
[2018-08-17] MEDS ORDERED: MAGNESIUM/ALUMINUM HYDROXIDE/SIMETHICONE 30ML UDC PO PRN (08:00)
[2018-08-17] MEDS ORDERED: ACETAMINOPHEN 325MG TABLET PO PRN (08:00)
[2018-08-17] MEDS ORDERED: CLONIDINE 0.1MG TABLET PO PRN (08:00)
[2018-08-17] MEDS ORDERED: DIPHENHYDRAMINE 50MG/ML VIAL IV PRN (08:00)
[2018-08-17 08:56] LABS: INR 1.1; PARTIAL THROMBOPLASTIN TIME 31.9 sec (23.4-31.0); PROTHROMBIN TIME 11.1 sec (9.1-11.1)
[2018-08-17 09:01] LABS: PHOSPHORUS 3.2 mg/dL (2.5-4.9)
[2018-08-17] MEDS: CLONIDINE 0.1MG TABLET PO SCH ×2 (14:23→21:33)
[2018-08-17 16:00] VITALS: BP 130/82
[2018-08-17 17:00] VITALS: BP 130/82
[2018-08-17] MEDS ORDERED: FUROSEMIDE 40MG/4ML VIAL IVP NR (17:45)
[2018-08-17] MEDS ORDERED: PNEUMOCOCCAL 23-VAL P-SAC VAC 0.5 ML IM ONE (19:45)
[2018-08-17] MEDS ORDERED: INFLUENZA VIRUS VACCINE(AFLURIA) 0.5ML SYR IM ONE (19:45)
[2018-08-17 20:00] VITALS: BP 146/101
[2018-08-17] MEDS: IPRATROPIUM/ALBUTEROL 0.5-3(2.5)MG/3ML NEB HHN SCH ×2 (20:54→23:52)
[2018-08-17] MEDS: BUDESONIDE 0.5MG/2ML NEB HHN SCH (20:54)
[2018-08-17] MEDS: GUAIFENESIN 600MG ER TABLET PO SCH (21:32)
[2018-08-17] MEDS: PREDNISONE 20MG TABLET PO SCH (21:32)
[2018-08-17] MEDS: AMLODIPINE 5MG TABLET PO SCH (21:33)
[2018-08-17] MEDS ORDERED: DEXTROSE 50% WATER 50ML SYRINGE IV PRN (22:00)
[2018-08-18] VITALS: BP 138/89
[2018-08-18] MEDS: IPRATROPIUM/ALBUTEROL 0.5-3(2.5)MG/3ML NEB HHN SCH ×5 (03:32→20:27)
[2018-08-18 04:00] VITALS: BP 121/91
[2018-08-18] MEDS: CLONIDINE 0.1MG TABLET PO SCH ×3 (06:15→22:00)
[2018-08-18] MEDS: BLOOD SUGAR DIAGNOSTIC STRIP TEST SCH ×4 (06:16→20:00)
[2018-08-18] MEDS: INSULIN LISPRO 100 UNITS/ML SUBCUT SCH ×4 (06:53→20:36)
[2018-08-18 08:00] VITALS: BP 133/95
[2018-08-18] MEDS ORDERED: NICOTINE 14MG PATCH TD SCH (09:00)
[2018-08-18] MEDS: BUDESONIDE 0.5MG/2ML NEB HHN SCH ×2 (09:25→20:25)
[2018-08-18] MEDS: PREDNISONE 20MG TABLET PO SCH (09:47)
[2018-08-18] MEDS: AMLODIPINE 5MG TABLET PO SCH ×2 (09:48→19:57)
[2018-08-18] MEDS: ASPIRIN 81MG EC TABLET PO SCH (09:48)
[2018-08-18] MEDS: GUAIFENESIN 600MG ER TABLET PO SCH ×2 (09:48→19:57)
[2018-08-18 10:12] LABS: BASOPHILS % 0.3 % (0.0-2.0); EOSINOPHILS % 0.1 % (0.0-5.0); HEMATOCRIT. 38.2 % (42.0-52.0); LYMPHOCYTES % 11.4 % (20.0-50.0); MEAN CORPUSCULAR HEMOGLOBIN 29.5 pg (28.0-32.0); MEAN CORPUSCULAR VOLUME 86.7 fL (80.0-94.0); MEAN PLATELET VOLUME 8.1 fl (7.4-10.4); NEUTROPHILS % 78.2 % (40.0-76.0); PLATELET 371 x1000/uL (130-400); RED CELL DISTRIBUTION WIDTH 13.6 % (11.6-14.6)
[2018-08-18 11:05] LABS: CHLORIDE 98 mEq/L (98-107)
[2018-08-18 11:34] LABS: HDL CHOLESTEROL 80 mg/dL (40-59)
[2018-08-18 11:38] LABS: LDL CHOLESTEROL 100 mg/dL (5-100)
[2018-08-18 12:00] VITALS: BP 130/97
[2018-08-18 16:00] VITALS: BP 132/95
[2018-08-18 20:00] VITALS: BP 135/75
[2018-08-18] MEDS: ONDANSETRON HCL 4MG/2ML INJ IV PRN (21:29)
[2018-08-18] MEDS: HYDROCODONE/ACETAMINOPHEN 5/325MG TABLET PO PRN (21:32)
[2018-08-19] VITALS (7 sets, daily range): BP systolic 110–192; BP diastolic 62–98
[2018-08-19] MEDS: IPRATROPIUM/ALBUTEROL 0.5-3(2.5)MG/3ML NEB HHN SCH ×6 (00:43→20:43)
[2018-08-19] MEDS: HYDROCODONE/ACETAMINOPHEN 5/325MG TABLET PO PRN (03:08)
[2018-08-19] MEDS: CLONIDINE 0.1MG TABLET PO SCH ×3 (06:09→22:02)
[2018-08-19] MEDS: INSULIN LISPRO 100 UNITS/ML SUBCUT SCH ×4 (06:24→21:00)
[2018-08-19] MEDS: BLOOD SUGAR DIAGNOSTIC STRIP TEST SCH ×4 (06:24→21:00)
[2018-08-19 07:59] LABS: BASOPHILS % 0.6 % (0.0-2.0); EOSINOPHILS % 0.1 % (0.0-5.0); HEMOGLOBIN. 12.1 g/dL (14.0-18.0); LYMPHOCYTES % 11.4 % (20.0-50.0); MEAN CORPUSCULAR HEMOGLOBIN 30.4 pg (28.0-32.0); MEAN CORPUSCULAR VOLUME 85.4 fL (80.0-94.0); MEAN PLATELET VOLUME 8.6 fl (7.4-10.4); MONOCYTES % 13.3 % (2.0-8.0); NEUTROPHILS % 74.6 % (40.0-76.0); PLATELET 347 x1000/uL (130-400); RED BLOOD CELL COUNT 3.98 mill/uL (4.7-6.1); RED CELL DISTRIBUTION WIDTH 13.3 % (11.6-14.6)
[2018-08-19] MEDS: BUDESONIDE 0.5MG/2ML NEB HHN SCH ×2 (08:31→20:45)
[2018-08-19] MEDS: ASPIRIN 81MG EC TABLET PO SCH (08:40)
[2018-08-19] MEDS: GUAIFENESIN 600MG ER TABLET PO SCH ×2 (08:40→22:02)
[2018-08-19] MEDS: FUROSEMIDE 40MG TABLET PO SCH (09:37)
[2018-08-19] MEDS: DILTIAZEM HCL 30MG TABLET PO SCH ×3 (09:38→18:08)
[2018-08-19] MEDS: NICOTINE 7MG PATCH TD SCH (09:38)
[2018-08-19] MEDS ORDERED: KCL 20MEQ/100ML PREMIX 100 ML IV SCH (11:00)
[2018-08-19] MEDS: ONDANSETRON HCL 4MG/2ML INJ IV PRN (22:02)
[2018-08-20] VITALS (7 sets, daily range): BP systolic 93–123; BP diastolic 55–92
[2018-08-20] MEDS: IPRATROPIUM/ALBUTEROL 0.5-3(2.5)MG/3ML NEB HHN SCH ×7 (00:10→23:58)
[2018-08-20] MEDS: DILTIAZEM HCL 30MG TABLET PO SCH ×4 (01:10→17:22)
[2018-08-20 03:51] LABS: CLARITY URINE CLEAR (CLEAR); COLOR URINE YELLOW (YELLOW); KETONES URINE NEGATIVE (NEGATIVE); LEUKOCYTE ESTERASE URINE NEGATIVE (NEGATIVE); NITRITE URINE NEGATIVE (NEGATIVE); OCCULT BLOOD URINE NEGATIVE (NEGATIVE); PH URINE 6.5 (4.5-8.0); PROTEIN URINE NEGATIVE (NEGATIVE); SPECIFIC GRAVITY URINE 1.024 (1.005-1.030)
[2018-08-20] MEDS: BLOOD SUGAR DIAGNOSTIC STRIP TEST SCH ×4 (06:33→20:35)
[2018-08-20] MEDS: CLONIDINE 0.1MG TABLET PO SCH ×3 (06:35→21:42)
[2018-08-20 06:38] LABS: BASOPHILS % 0.7 % (0.0-2.0); EOSINOPHILS % 2.3 % (0.0-5.0); HEMATOCRIT. 34.4 % (42.0-52.0); LYMPHOCYTES % 28.1 % (20.0-50.0); MEAN CORPUSCULAR HEMOGLOBIN 29.8 pg (28.0-32.0); MEAN CORPUSCULAR VOLUME 85.3 fL (80.0-94.0); MEAN PLATELET VOLUME 8.3 fl (7.4-10.4); NEUTROPHILS % 57.9 % (40.0-76.0); PLATELET 352 x1000/uL (130-400); RED BLOOD CELL COUNT 4.03 mill/uL (4.7-6.1); RED CELL DISTRIBUTION WIDTH 13.2 % (11.6-14.6)
[2018-08-20] MEDS: INSULIN LISPRO 100 UNITS/ML SUBCUT SCH ×4 (06:38→20:37)
[2018-08-20 06:46] LABS: CHLORIDE 96 mEq/L (98-107)
[2018-08-20 07:04] LABS: PHOSPHORUS 4.1 mg/dL (2.5-4.9)
[2018-08-20 07:09] LABS: T4 FREE 1.62 ng/dL (0.76-1.46)
[2018-08-20] MEDS: ASPIRIN 81MG EC TABLET PO SCH (09:35)
[2018-08-20] MEDS: NICOTINE 7MG PATCH TD SCH (09:36)
[2018-08-20] MEDS: FUROSEMIDE 40MG TABLET PO SCH (09:36)
[2018-08-20] MEDS: GUAIFENESIN 600MG ER TABLET PO SCH ×2 (09:36→21:12)
[2018-08-20] MEDS: LISINOPRIL 2.5MG TABLET PO SCH (10:30)
[2018-08-20] MEDS: HYDROCODONE/ACETAMINOPHEN 5/325MG TABLET PO PRN ×2 (12:24→21:13)
[2018-08-20] MEDS: BUDESONIDE 0.5MG/2ML NEB HHN SCH (20:33)
[2018-08-21] MEDS: IPRATROPIUM/ALBUTEROL 0.5-3(2.5)MG/3ML NEB HHN SCH ×5 (03:55→21:39)
[2018-08-21] MEDS: DILTIAZEM HCL 30MG TABLET PO SCH ×6 (06:00→23:52)
[2018-08-21] MEDS: CLONIDINE 0.1MG TABLET PO SCH ×3 (06:00→21:47)
[2018-08-21] MEDS: BLOOD SUGAR DIAGNOSTIC STRIP TEST SCH ×4 (06:49→21:50)
[2018-08-21] MEDS: INSULIN LISPRO 100 UNITS/ML SUBCUT SCH ×4 (06:50→21:00)
[2018-08-21 06:57] LABS: BASOPHILS % 0.5 % (0.0-2.0); EOSINOPHILS % 4.4 % (0.0-5.0); HEMATOCRIT. 32.1 % (42.0-52.0); HEMOGLOBIN. 11.2 g/dL (14.0-18.0); LYMPHOCYTES % 26.3 % (20.0-50.0); MEAN CORPUSCULAR HEMOGLOBIN 30.1 pg (28.0-32.0); MEAN CORPUSCULAR VOLUME 86.3 fL (80.0-94.0); MEAN PLATELET VOLUME 8.2 fl (7.4-10.4); MONOCYTES % 14.9 % (2.0-8.0); NEUTROPHILS % 53.9 % (40.0-76.0); PLATELET 336 x1000/uL (130-400); RED BLOOD CELL COUNT 3.72 mill/uL (4.7-6.1); RED CELL DISTRIBUTION WIDTH 13.1 % (11.6-14.6)
[2018-08-21 08:00] VITALS: BP 117/90
[2018-08-21 08:04] LABS: CHLORIDE 99 mEq/L (98-107)
[2018-08-21 08:15] LABS: PHOSPHORUS 4.4 mg/dL (2.5-4.9)
[2018-08-21] MEDS: FUROSEMIDE 40MG TABLET PO SCH (08:43)
[2018-08-21] MEDS: NICOTINE 7MG PATCH TD SCH (08:43)
[2018-08-21] MEDS: ASPIRIN 81MG EC TABLET PO SCH (08:43)
[2018-08-21] MEDS: GUAIFENESIN 600MG ER TABLET PO SCH ×2 (08:43→21:47)
[2018-08-21] MEDS: LISINOPRIL 2.5MG TABLET PO SCH (08:43)
[2018-08-21 12:00] VITALS: BP 112/58
[2018-08-21 16:00] VITALS: BP 103/72
[2018-08-21] MEDS: PANTOPRAZOLE SODIUM 40 MG/VIAL IV SCH (17:29)
[2018-08-21 20:00] VITALS: BP 120/60
[2018-08-21] MEDS: HYDROCODONE/ACETAMINOPHEN 5/325MG TABLET PO PRN (22:16)
[2018-08-21 23:44] VITALS: BP 100/50
[2018-08-22 04:32] VITALS: BP 118/79
[2018-08-22] MEDS: DILTIAZEM HCL 30MG TABLET PO SCH ×2 (06:14→11:35)
[2018-08-22] MEDS: CLONIDINE 0.1MG TABLET PO SCH (06:14)
[2018-08-22] MEDS: BLOOD SUGAR DIAGNOSTIC STRIP TEST SCH (06:26)
[2018-08-22] MEDS: INSULIN LISPRO 100 UNITS/ML SUBCUT SCH (06:26)
[2018-08-22 07:09] LABS: BASOPHILS % 0.5 % (0.0-2.0); EOSINOPHILS % 5.2 % (0.0-5.0); HEMATOCRIT. 32.4 % (42.0-52.0); LYMPHOCYTES % 20.7 % (20.0-50.0); MEAN CORPUSCULAR HEMOGLOBIN 29.4 pg (28.0-32.0); MEAN CORPUSCULAR VOLUME 86.4 fL (80.0-94.0); MEAN PLATELET VOLUME 8.3 fl (7.4-10.4); MONOCYTES % 14.8 % (2.0-8.0); NEUTROPHILS % 58.8 % (40.0-76.0); PLATELET 343 x1000/uL (130-400); RED BLOOD CELL COUNT 3.75 mill/uL (4.7-6.1); RED CELL DISTRIBUTION WIDTH 12.9 % (11.6-14.6)
[2018-08-22 08:00] VITALS: BP 110/70
[2018-08-22 08:00] LABS: CHLORIDE 101 mEq/L (98-107)
[2018-08-22 08:07] LABS: PHOSPHORUS 4.1 mg/dL (2.5-4.9)
[2018-08-22] MEDS: IPRATROPIUM/ALBUTEROL 0.5-3(2.5)MG/3ML NEB HHN SCH ×2 (08:42→11:42)
[2018-08-22] MEDS: GUAIFENESIN 600MG ER TABLET PO SCH (09:17)
[2018-08-22] MEDS: LISINOPRIL 2.5MG TABLET PO SCH (09:17)
[2018-08-22] MEDS: FUROSEMIDE 40MG TABLET PO SCH (09:17)
[2018-08-22] MEDS: ASPIRIN 81MG EC TABLET PO SCH (09:17)
[2018-08-22] MEDS: PANTOPRAZOLE SODIUM 40 MG/VIAL IV SCH (09:18)
[2018-08-22] MEDS: NICOTINE 7MG PATCH TD SCH (09:22)
[2018-08-22 12:12] VITALS: BP 99/58
[2018-08-22] MEDS ORDERED: LISI2.5T47 PO (12:55)
[2018-08-22] MEDS ORDERED: DEXTL PO (12:55)
[2018-08-22] MEDS ORDERED: DILT30TA38 PO (12:55)
[2018-08-22] MEDS ORDERED: PANT40TA4 MT (12:55)
[2018-08-22] MEDS ORDERED: CLON0.1T14 PO (12:55)
[2018-08-22] MEDS ORDERED: ASPI-1158 PO (12:55)
[2018-08-22] MEDS ORDERED: FURO40TA5 PO (12:55)
[2018-08-22 12:56] VITALS: BP 99/58
[2018-08-22 13:06] LABS: A/G RATIO 1.2 (0.7-1.7); ALBUMIN 3.6 g/dL (2.9-4.4); ALPHA-1-GLOBULIN 0.3 g/dL (0.0-0.4); ALPHA-2-GLOBULIN 0.7 g/dL (0.4-1.0); M-SPIKE Not Observed g/dL (Not Observed); TOTAL PROTEIN SERUM 6.6 g/dL (6.0-8.5)
== END 2018-08-22 13:45 | disposition home or self-care (01) | DRG 816 ==
LOC: ER 17:59 → 8WST 08-17 01:56 → ENRESERV 08-17 15:21
PROVIDERS: ADMIT Internal Medicine; ATTEND Internal Medicine
DX: T40.5X1A Poisoning by cocaine, accidental (unintentional), initial encounter (principal); J96.01 Acute respiratory failure with hypoxia; I50.23 Acute on chronic systolic (congestive) heart failure; N17.9 Acute kidney failure, unspecified; J68.0 Bronchitis and pneumonitis due to chemicals, gases, fumes and vapors; I13.0 Hypertensive heart and chronic kidney disease with heart failure and stage 1 through stage 4 chronic kidney disease, or unspecified chronic kidney disease; E87.2 Acidosis; R73.9 Hyperglycemia, unspecified; I08.1 Rheumatic disorders of both mitral and tricuspid valves; E87.1 Hypo-osmolality and hyponatremia; R10.9 Unspecified abdominal pain; N18.2 Chronic kidney disease, stage 2 (mild); D64.9 Anemia, unspecified; E87.6 Hypokalemia; F14.129 Cocaine abuse with intoxication, unspecified; F17.210 Nicotine dependence, cigarettes, uncomplicated; I42.0 Dilated cardiomyopathy; I20.9 Angina pectoris, unspecified; Z82.49 Family history of ischemic heart disease and other diseases of the circulatory system; Y92.89 Other specified places as the place of occurrence of the external cause; Z71.6 Tobacco abuse counseling; Z88.0 Allergy status to penicillin; Z79.82 Long term (current) use of aspirin; Z79.899 Other long term (current) drug therapy
CPT/HCPCS: 36415; 36600; 71045; 76770; 80048; 80061; 80305; 82270; 82375; 82533; 82550; 82805; 82962; 83036; 83605; 83735; 83880; 83935; 84100; 84155; 84165; 84439; 84443; 84481; 84484; 85044; 90686; 90732; 93005; 93306; 93970; 94640; 97116; 97162; 97166; 99285; C9113; J0360; J1200; J1815; J1940; J2405; J3480; J7030; J7050; J7512; J7611; J7620; J7626

== ENCOUNTER 2018-10-02 14:19 | Inpatient (IN) | payer MEDICAID ==
[~2018-10-02] VITALS: Ht 177.8 cm; Wt 54.0 kg
[~2018-10-02 14:19] MED LIST changes: +ASPI-1158 PO; +CLON0.1T14 PO; -CLONIDINE; +DEXTL PO; +DILT30TA38 PO; +FURO40TA5 PO; +LISI2.5T47 PO; -LISINOPRIL; -NORCO; +PANT40TA4 MT; -XANAX
[2018-10-02] MEDS ORDERED: ASPIRIN 81MG TABLET PO ONE (15:45)
[2018-10-02] MEDS ORDERED: SODIUM CHLORIDE 0.9% 1,000 ML IV ONE (15:46)
[2018-10-02 16:08] LABS: HEMOGLOBIN. 11.7 g/dL (14.0-18.0); MEAN CORPUSCULAR HEMOGLOBIN 29.4 pg (28.0-32.0); MEAN CORPUSCULAR VOLUME 85.5 fL (80.0-94.0); MEAN PLATELET VOLUME 7.8 fl (7.4-10.4); PLATELET 354 x1000/uL (130-400); RED BLOOD CELL COUNT 3.97 mill/uL (4.7-6.1); RED CELL DISTRIBUTION WIDTH 13.9 % (11.6-14.6)
[2018-10-02 16:14] LABS: CHLORIDE 110 mEq/L (98-107)
[2018-10-02 16:18] LABS: ETHANOL BLOOD < 10 mg/dL
[2018-10-02 16:21] LABS: D-DIMER 0.92 mg/L FEU (<0.50); INR 1.1; PARTIAL THROMBOPLASTIN TIME 31.2 sec (23.4-31.0); PROTHROMBIN TIME 11.4 sec (9.6-11.0)
[2018-10-02] MEDS ORDERED: ONDANSETRON HCL 4MG/2ML INJ IV ONE (17:00)
[2018-10-02 17:19] LABS: PLATELET ESTIMATE NORMAL
[2018-10-02] MEDS ORDERED: HYDRALAZINE 20MG/ML VIAL IV ONE (18:00)
[2018-10-02] MEDS ORDERED: IOHEXOL-350 100 ML BOTTLE ONE (18:12)
[2018-10-02] MEDS ORDERED: FUROSEMIDE 40MG/4ML VIAL IV ONE (18:15)
[2018-10-02] MEDS ORDERED: CLONIDINE 0.2MG TABLET PO ONE (18:15)
[2018-10-02] MEDS ORDERED: NITROGLYCERIN OINT 1GM/INCH UDPKT TD ONE (18:15)
[2018-10-02 19:47] LABS: *AMPHETAMINES SCREEN URINE NEGATIVE (NEGATIVE); *BARBITURATES SCREEN URINE NEGATIVE (NEGATIVE); *BENZODIAZEPINES SCREEN URINE NEGATIVE (NEGATIVE); *COCAINE SCREEN URINE PRESUMTIVE POSITIVE (NEGATIVE)
[2018-10-02 19:48] LABS: CANNABINOID URINE SCREEN PRESUMTIVE POSITIVE (NEGATIVE); METHADONE URINE SCREEN NEGATIVE (NEGATIVE); OPIATES URINE SCREEN NEGATIVE (NEGATIVE); PHENCYCLIDINE URINE SCREEN NEGATIVE (NEGATIVE)
[2018-10-02 21:30] VITALS: BP 190/147
[2018-10-02 22:00] VITALS: BP 190/147
[2018-10-02] MEDS ORDERED: CLONIDINE 0.1MG TABLET PO PRN ×2 (22:00→22:15)
[2018-10-02] MEDS ORDERED: IPRATROPIUM/ALBUTEROL 0.5-3(2.5)MG/3ML NEB INH PRN (22:15)
[2018-10-02] MEDS ORDERED: ONDANSETRON HCL 4MG/2ML INJ IV PRN (22:15)
[2018-10-02] MEDS ORDERED: ACETAMINOPHEN 325MG TABLET PO PRN (22:15)
[2018-10-02] MEDS ORDERED: MAGNESIUM/ALUMINUM HYDROXIDE/SIMETHICONE 30ML UDC PO PRN (22:15)
[2018-10-02] MEDS ORDERED: HYDROCODONE/ACETAMINOPHEN 5/325MG TABLET PO PRN (22:15)
[2018-10-02 23:17] VITALS: BP 146/100
[2018-10-03] VITALS: BP_SYST 155; BP_DIAS 95; BP_DIAS 99
[2018-10-03] MEDS: ENOXAPARIN 40MG/0.4ML SYR SUBCUT SCH ×2 (00:01→21:55)
[2018-10-03] MEDS: LEVOFLOXACIN 500MG PREMIX 100 ML IV SCH ×2 (00:01→21:54)
[2018-10-03 00:11] LABS: CHLORIDE 105 mEq/L (98-107)
[2018-10-03 04:00] VITALS: BP 157/71
[2018-10-03] MEDS: FUROSEMIDE 40MG/4ML VIAL IV SCH ×2 (06:41→17:51)
[2018-10-03 07:05] LABS: BASOPHILS % 0.5 % (0.0-2.0); HEMATOCRIT. 30.2 % (42.0-52.0); HEMOGLOBIN. 10.7 g/dL (14.0-18.0); LYMPHOCYTES % 15.3 % (20.0-50.0); MEAN CORPUSCULAR HEMOGLOBIN 29.9 pg (28.0-32.0); MEAN CORPUSCULAR VOLUME 84.8 fL (80.0-94.0); MEAN PLATELET VOLUME 8.5 fl (7.4-10.4); MONOCYTES % 10.4 % (2.0-8.0); NEUTROPHILS % 73.8 % (40.0-76.0); PLATELET 313 x1000/uL (130-400); RED BLOOD CELL COUNT 3.57 mill/uL (4.7-6.1); RED CELL DISTRIBUTION WIDTH 13.9 % (11.6-14.6)
[2018-10-03 07:40] LABS: CREATINE KINASE MB FRACTION 1.5 ng/mL (0.5-3.6)
[2018-10-03 08:00] VITALS: BP 136/63
[2018-10-03] MEDS: ASPIRIN 81MG TABLET PO SCH (10:31)
[2018-10-03] MEDS: CARVEDILOL 6.25 MG TABLET PO SCH ×2 (10:31→21:54)
[2018-10-03] MEDS: AMLODIPINE 5MG TABLET PO SCH ×2 (10:45→21:55)
[2018-10-03 12:00] VITALS: BP 121/91
[2018-10-03] MEDS: PANTOPRAZOLE 40MG DR TABLET PO SCH (14:50)
[2018-10-03] MEDS: NICOTINE 14MG PATCH TD SCH (14:51)
[2018-10-03 16:00] VITALS: BP 137/86
[2018-10-03 16:43] LABS: CREATINE KINASE MB FRACTION 1.5 ng/mL (0.5-3.6)
[2018-10-03 20:00] VITALS: BP 114/80
[2018-10-03] MEDS: BUDESONIDE 0.5MG/2ML NEB HHN SCH (20:26)
[2018-10-03] MEDS: IPRATROPIUM/ALBUTEROL 0.5-3(2.5)MG/3ML NEB HHN SCH (20:27)
[2018-10-03] MEDS: GUAIFENESIN 600MG ER TABLET PO SCH (21:55)
[2018-10-04] VITALS: BP 112/82
[2018-10-04] MEDS: IPRATROPIUM/ALBUTEROL 0.5-3(2.5)MG/3ML NEB HHN SCH ×4 (00:09→20:31)
[2018-10-04 04:00] VITALS: BP 118/86
[2018-10-04] MEDS: FUROSEMIDE 40MG/4ML VIAL IV SCH ×2 (06:32→17:49)
[2018-10-04] MEDS: PANTOPRAZOLE 40MG DR TABLET PO SCH (06:32)
[2018-10-04] MEDS: BUDESONIDE 0.5MG/2ML NEB HHN SCH ×2 (07:50→20:31)
[2018-10-04 08:00] VITALS: BP 123/95
[2018-10-04] MEDS: AMLODIPINE 5MG TABLET PO SCH ×2 (10:08→21:00)
[2018-10-04] MEDS: NICOTINE 14MG PATCH TD SCH (10:08)
[2018-10-04] MEDS: GUAIFENESIN 600MG ER TABLET PO SCH ×2 (10:08→21:39)
[2018-10-04] MEDS: ASPIRIN 81MG TABLET PO SCH (10:08)
[2018-10-04] MEDS: CARVEDILOL 6.25 MG TABLET PO SCH ×2 (10:09→21:00)
[2018-10-04 12:00] VITALS: BP 108/77
[2018-10-04] MEDS ORDERED: ALPRAZOLAM 0.25 MG TABLET PO PRN (12:45)
[2018-10-04] MEDS: METOCLOPRAMIDE HCL 10MG/2ML VIAL IV SCH ×2 (13:11→17:49)
[2018-10-04 16:00] VITALS: BP 106/69
[2018-10-04 20:00] VITALS: BP_SYST 104; BP_SYST 111; BP_DIAS 68
[2018-10-04] MEDS: ENOXAPARIN 40MG/0.4ML SYR SUBCUT SCH (21:40)
[2018-10-04] MEDS: LEVOFLOXACIN 500MG PREMIX 100 ML IV SCH (21:44)
[2018-10-05] MEDS: METOCLOPRAMIDE HCL 10MG/2ML VIAL IV SCH ×4 (00:33→17:31)
[2018-10-05] MEDS: IPRATROPIUM/ALBUTEROL 0.5-3(2.5)MG/3ML NEB HHN SCH ×4 (01:28→20:42)
[2018-10-05 04:00] VITALS: BP 111/62
[2018-10-05] MEDS: FAMOTIDINE 20MG TABLET PO SCH (05:58)
[2018-10-05] MEDS: FUROSEMIDE 40MG/4ML VIAL IV SCH (06:30)
[2018-10-05 08:00] VITALS: BP 127/89
[2018-10-05] MEDS: BUDESONIDE 0.5MG/2ML NEB HHN SCH ×2 (08:06→20:42)
[2018-10-05] MEDS: NICOTINE 14MG PATCH TD SCH (08:37)
[2018-10-05] MEDS: ASPIRIN 81MG TABLET PO SCH (08:37)
[2018-10-05] MEDS: AMLODIPINE 5MG TABLET PO SCH ×2 (08:37→21:00)
[2018-10-05] MEDS: GUAIFENESIN 600MG ER TABLET PO SCH ×2 (08:37→21:00)
[2018-10-05] MEDS: CARVEDILOL 6.25 MG TABLET PO SCH ×2 (08:37→21:00)
[2018-10-05 09:11] LABS: BASOPHILS % 0.4 % (0.0-2.0); EOSINOPHILS % 1.9 % (0.0-5.0); LYMPHOCYTES % 9.6 % (20.0-50.0); MEAN CORPUSCULAR HEMOGLOBIN 29.4 pg (28.0-32.0); MEAN CORPUSCULAR VOLUME 84.3 fL (80.0-94.0); MEAN PLATELET VOLUME 7.9 fl (7.4-10.4); MONOCYTES % 6.9 % (2.0-8.0); NEUTROPHILS % 81.2 % (40.0-76.0); PLATELET 415 x1000/uL (130-400); RED BLOOD CELL COUNT 4.71 mill/uL (4.7-6.1); RED CELL DISTRIBUTION WIDTH 13.9 % (11.6-14.6)
[2018-10-05 09:28] LABS: HEMATOCRIT. 39.7 % (42.0-52.0); HEMOGLOBIN. 13.8 g/dL (14.0-18.0)
[2018-10-05 09:38] LABS: CHLORIDE 97 mEq/L (98-107)
[2018-10-05 12:00] VITALS: BP 112/85
[2018-10-05 12:18] LABS: HEPATITIS B SURFACE ANTIGEN NEGATIVE
[2018-10-05 12:46] LABS: HEPATITIS A AB IGM NEGATIVE (NEGATIVE)
[2018-10-05] MEDS ORDERED: POTASSIUM CHLORIDE 20MEQ TABLET SR PO NR (14:30)
[2018-10-05 16:00] VITALS: BP 117/71
[2018-10-05 20:00] VITALS: BP 130/89
[2018-10-05] MEDS: LEVOFLOXACIN 250MG PREMIX 50 ML IV SCH (21:00)
[2018-10-05] MEDS: ENOXAPARIN 40MG/0.4ML SYR SUBCUT SCH (21:00)
[2018-10-06] MEDS: METOCLOPRAMIDE HCL 10MG/2ML VIAL IV SCH ×4 (00:32→20:18)
[2018-10-06] MEDS: IPRATROPIUM/ALBUTEROL 0.5-3(2.5)MG/3ML NEB HHN SCH ×4 (02:00→20:42)
[2018-10-06 04:00] VITALS: BP 133/96
[2018-10-06 04:16] LABS: HIV SCREEN 4G Non Reactive (Non Reactive)
[2018-10-06] MEDS: FAMOTIDINE 20MG TABLET PO SCH (05:45)
[2018-10-06 07:02] LABS: BASOPHILS % 0.7 % (0.0-2.0); EOSINOPHILS % 3.3 % (0.0-5.0); HEMOGLOBIN. 13.1 g/dL (14.0-18.0); LYMPHOCYTES % 16.1 % (20.0-50.0); MEAN CORPUSCULAR HEMOGLOBIN 29.2 pg (28.0-32.0); MEAN CORPUSCULAR VOLUME 84.7 fL (80.0-94.0); MEAN PLATELET VOLUME 7.7 fl (7.4-10.4); MONOCYTES % 9.9 % (2.0-8.0); PLATELET 438 x1000/uL (130-400); RED BLOOD CELL COUNT 4.48 mill/uL (4.7-6.1)
[2018-10-06 07:37] LABS: CHLORIDE 101 mEq/L (98-107)
[2018-10-06 08:01] VITALS: BP 143/94
[2018-10-06] MEDS: BUDESONIDE 0.5MG/2ML NEB HHN SCH (08:33)
[2018-10-06] MEDS: ASPIRIN 81MG TABLET PO SCH (09:03)
[2018-10-06] MEDS: NICOTINE 14MG PATCH TD SCH (09:03)
[2018-10-06] MEDS: GUAIFENESIN 600MG ER TABLET PO SCH ×2 (09:03→20:16)
[2018-10-06] MEDS: FUROSEMIDE 40MG TABLET PO SCH (09:03)
[2018-10-06] MEDS: AMLODIPINE 5MG TABLET PO SCH ×2 (09:03→20:17)
[2018-10-06] MEDS: CARVEDILOL 6.25 MG TABLET PO SCH ×2 (09:04→20:17)
[2018-10-06 12:00] VITALS: BP 120/84
[2018-10-06 16:00] VITALS: BP 123/81
[2018-10-06 20:00] VITALS: BP 132/76
[2018-10-06] MEDS: LEVOFLOXACIN 250MG PREMIX 50 ML IV SCH (20:16)
[2018-10-06] MEDS: ENOXAPARIN 40MG/0.4ML SYR SUBCUT SCH (20:19)
[2018-10-07] VITALS: BP 106/67
[2018-10-07 04:00] VITALS: BP 129/89
[2018-10-07] MEDS: FAMOTIDINE 20MG TABLET PO SCH (06:04)
[2018-10-07] MEDS: METOCLOPRAMIDE HCL 10MG/2ML VIAL IV SCH ×3 (06:04→13:31)
[2018-10-07 07:16] LABS: BASOPHILS % 1.4 % (0.0-2.0); HEMATOCRIT. 36.7 % (42.0-52.0); HEMOGLOBIN. 12.8 g/dL (14.0-18.0); LYMPHOCYTES % 22.4 % (20.0-50.0); MEAN CORPUSCULAR HEMOGLOBIN 29.8 pg (28.0-32.0); MEAN CORPUSCULAR VOLUME 85.2 fL (80.0-94.0); MEAN PLATELET VOLUME 8.4 fl (7.4-10.4); MONOCYTES % 14.5 % (2.0-8.0); NEUTROPHILS % 56.7 % (40.0-76.0); PLATELET 438 x1000/uL (130-400); RED BLOOD CELL COUNT 4.31 mill/uL (4.7-6.1); RED CELL DISTRIBUTION WIDTH 13.8 % (11.6-14.6)
[2018-10-07 08:00] VITALS: BP 125/92
[2018-10-07 08:11] LABS: CHLORIDE 102 mEq/L (98-107)
[2018-10-07] MEDS: IPRATROPIUM/ALBUTEROL 0.5-3(2.5)MG/3ML NEB HHN SCH (08:33)
[2018-10-07] MEDS: AMLODIPINE 5MG TABLET PO SCH (09:00)
[2018-10-07] MEDS: FUROSEMIDE 40MG TABLET PO SCH (09:00)
[2018-10-07] MEDS ORDERED: SIMETHICONE 40 MG/0.6 ML 30ML ONE (10:03)
[2018-10-07] MEDS ORDERED: PROPOFOL 200MG/20ML VIAL IV ONE (11:11)
[2018-10-07] MEDS ORDERED: LIDOCAINE HCL 1% 20ML VIAL (Pyxis) INJ ONE (11:11)
[2018-10-07] MEDS ORDERED: MIDAZOLAM HCL 5 MG/5 ML VIAL ONE (11:11)
[2018-10-07] MEDS ORDERED: SODIUM CHLORIDE 0.9% 1,000 ML IV ONE (11:29)
[2018-10-07] MEDS ORDERED: ONDANSETRON HCL 4MG/2ML INJ IV PRN (11:30)
[2018-10-07] MEDS ORDERED: MORPHINE SULFATE 4 MG/ML CPJ (NOT FOR IM USE) IV PRN (11:30)
[2018-10-07] MEDS ORDERED: HYDROMORPHONE HCL/PF 2MG/ML CPJ IV PRN (11:30)
[2018-10-07 12:00] VITALS: BP 140/90
[2018-10-07] MEDS: GUAIFENESIN 600MG ER TABLET PO SCH (13:30)
[2018-10-07] MEDS: CARVEDILOL 6.25 MG TABLET PO SCH (13:30)
[2018-10-07] MEDS: NICOTINE 14MG PATCH TD SCH (13:31)
[2018-10-07] MEDS: ASPIRIN 81MG TABLET PO SCH (13:32)
[2018-10-07 16:00] VITALS: BP 111/75
[2018-10-07] MEDS ORDERED: COR6 PO (16:15)
[2018-10-07] MEDS ORDERED: OMEP20CA10 MT (16:15)
[2018-10-07 16:31] VITALS: BP 111/75
[2018-10-07] MEDS ORDERED: ASPI-1158 MT (16:35)
[2018-10-07] MEDS ORDERED: OMEP40CA34 MT (16:35)
[2018-10-07] MEDS ORDERED: FAMOTIDINE 20MG TABLET PO SCH (21:00)
[2018-10-07] MEDS ORDERED: LEVOFLOXACIN 500MG PREMIX 100 ML IV SCH (21:00)
== END 2018-10-07 17:10 | disposition home or self-care (01) | DRG 816 ==
LOC: ER 14:19 → 5WST 18:36 → EDBEDREQ 18:39 → EDBEDREQTM 18:39 → ENRESERV 19:56
PROVIDERS: ADMIT Internal Medicine; ATTEND Internal Medicine
PROC: 0DD68ZX Extraction of Stomach, Via Natural or Artificial Opening Endoscopic, Diagnostic (ICD-10-PCS; principal; 2018-10-07)
PROC: 0DD98ZX Extraction of Duodenum, Via Natural or Artificial Opening Endoscopic, Diagnostic (ICD-10-PCS; 2018-10-07)
DX: T40.5X1A Poisoning by cocaine, accidental (unintentional), initial encounter (principal); J96.00 Acute respiratory failure, unspecified whether with hypoxia or hypercapnia; I50.23 Acute on chronic systolic (congestive) heart failure; I11.0 Hypertensive heart disease with heart failure; I42.9 Cardiomyopathy, unspecified; J68.0 Bronchitis and pneumonitis due to chemicals, gases, fumes and vapors; F19.10 Other psychoactive substance abuse, uncomplicated; D64.9 Anemia, unspecified; Z90.81 Acquired absence of spleen; E78.5 Hyperlipidemia, unspecified; F14.10 Cocaine abuse, uncomplicated; F41.9 Anxiety disorder, unspecified; F17.210 Nicotine dependence, cigarettes, uncomplicated; I25.10 Atherosclerotic heart disease of native coronary artery without angina pectoris; I42.0 Dilated cardiomyopathy; K29.70 Gastritis, unspecified, without bleeding; K44.9 Diaphragmatic hernia without obstruction or gangrene; N28.1 Cyst of kidney, acquired; Z90.49 Acquired absence of other specified parts of digestive tract; Z91.19 Patient's noncompliance with other medical treatment and regimen; Z88.0 Allergy status to penicillin; R74.0 Nonspecific elevation of levels of transaminase and lactic acid dehydrogenase [LDH]; Z71.6 Tobacco abuse counseling; Y92.89 Other specified places as the place of occurrence of the external cause
CPT/HCPCS: 36415; 71045; 71275; 76700; 80048; 80061; 80076; 80305; 80320; 82150; 82248; 82550; 82553; 83735; 83880; 84443; 84484; 85379; 86705; 86709; 86803; 87070; 87340; 87389; 88305; 88313; 93005; 94640; 96361; 96374; 96375; 99285; J0360; J1650; J1940; J1956; J2250; J2405; J2704; J2765; J3490; J7030; J7050; J7620; J7626; Q9967; G0480

== ENCOUNTER 2018-10-21 15:57 | Inpatient (IN) | payer MEDICAID ==
[~2018-10-21] VITALS: Ht 175.3 cm; Wt 52.2 kg
[~2018-10-21 15:57] MED LIST changes: +ASPI-1158 MT; -ASPI-1158 PO; -CLON0.1T14 PO; +COR6 PO; -DILT30TA38 PO; -LISI2.5T47 PO; +OMEP40CA34 MT; -PANT40TA4 MT
[2018-10-21] MEDS ORDERED: KETOROLAC 30MG/ML VIAL IV STA (16:38)
[2018-10-21] MEDS ORDERED: ONDANSETRON HCL 4MG/2ML INJ IV STA (16:38)
[2018-10-21] MEDS ORDERED: SODIUM CHLORIDE 0.9% 250 ML IV ONE (16:45)
[2018-10-21 17:27] LABS: BASOPHILS % 0.5 % (0.0-2.0); EOSINOPHILS % 0.4 % (0.0-5.0); HEMATOCRIT. 32.7 % (42.0-52.0); HEMOGLOBIN. 11.3 g/dL (14.0-18.0); LYMPHOCYTES % 9.3 % (20.0-50.0); MEAN CORPUSCULAR HEMOGLOBIN 29.6 pg (28.0-32.0); MEAN PLATELET VOLUME 8.5 fl (7.4-10.4); NEUTROPHILS % 78.8 % (40.0-76.0); PLATELET 329 x1000/uL (130-400); RED CELL DISTRIBUTION WIDTH 13.9 % (11.6-14.6)
[2018-10-21 17:28] LABS: CHLORIDE 107 mEq/L (98-107)
[2018-10-21] MEDS ORDERED: ACETAMINOPHEN 325MG TABLET PO PRN (19:15)
[2018-10-21] MEDS ORDERED: ONDANSETRON HCL 4MG/2ML INJ IV PRN (19:15)
[2018-10-21] MEDS ORDERED: HYDROCODONE/ACETAMINOPHEN 5/325MG TABLET PO PRN (19:15)
[2018-10-21] MEDS ORDERED: DOCUSATE SODIUM 100MG CAPSULE PO PRN (19:15)
[2018-10-21] MEDS ORDERED: LORAZEPAM 0.5MG TABLET PO PRN (19:15)
[2018-10-21 20:37] LABS: PHOSPHORUS 2.9 mg/dL (2.5-4.9)
[2018-10-21 20:50] LABS: CREATINE KINASE 103 IU/L (39-308); CREATINE KINASE MB FRACTION < 1.0 ng/mL (0.5-3.6)
[2018-10-21] MEDS: PANTOPRAZOLE SODIUM 40 MG/VIAL IV SCH (21:36)
[2018-10-22] VITALS: BP 139/98
[2018-10-22 06:26] LABS: BASOPHILS % 0.8 % (0.0-2.0); EOSINOPHILS % 4.5 % (0.0-5.0); HEMATOCRIT. 31.5 % (42.0-52.0); HEMOGLOBIN. 10.8 g/dL (14.0-18.0); LYMPHOCYTES % 17.9 % (20.0-50.0); MEAN CORPUSCULAR HEMOGLOBIN 29.6 pg (28.0-32.0); MEAN CORPUSCULAR VOLUME 86.4 fL (80.0-94.0); MEAN PLATELET VOLUME 8.6 fl (7.4-10.4); MONOCYTES % 14.7 % (2.0-8.0); NEUTROPHILS % 62.1 % (40.0-76.0); PLATELET 315 x1000/uL (130-400); RED BLOOD CELL COUNT 3.65 mill/uL (4.7-6.1); RED CELL DISTRIBUTION WIDTH 14.1 % (11.6-14.6)
[2018-10-22 06:50] LABS: CHLORIDE 108 mEq/L (98-107)
[2018-10-22 07:49] LABS: CLARITY URINE CLEAR (CLEAR); COLOR URINE DARK YELLOW (YELLOW); KETONES URINE TRACE (NEGATIVE); LEUKOCYTE ESTERASE URINE NEGATIVE (NEGATIVE); NITRITE URINE NEGATIVE (NEGATIVE); OCCULT BLOOD URINE NEGATIVE (NEGATIVE); PH URINE 5.5 (4.5-8.0); PROTEIN URINE TRACE (NEGATIVE)
[2018-10-22 08:19] LABS: *AMPHETAMINES SCREEN URINE NEGATIVE (NEGATIVE); *BARBITURATES SCREEN URINE NEGATIVE (NEGATIVE); CANNABINOID URINE SCREEN PRESUMTIVE POSITIVE (NEGATIVE); OPIATES URINE SCREEN PRESUMTIVE POSITIVE (NEGATIVE); PHENCYCLIDINE URINE SCREEN NEGATIVE (NEGATIVE)
[2018-10-22 08:20] LABS: *BENZODIAZEPINES SCREEN URINE NEGATIVE (NEGATIVE); *COCAINE SCREEN URINE PRESUMTIVE POSITIVE (NEGATIVE); METHADONE URINE SCREEN NEGATIVE (NEGATIVE)
[2018-10-22] MEDS: PANTOPRAZOLE SODIUM 40 MG/VIAL IV SCH (08:52)
[2018-10-22] MEDS ORDERED: FUROSEMIDE 40MG/4ML VIAL IV SCH (09:00)
[2018-10-22] MEDS: IPRATROPIUM/ALBUTEROL 0.5-3(2.5)MG/3ML NEB INH PRN ×3 (09:13→20:08)
[2018-10-22 12:00] VITALS: BP 139/104
[2018-10-22] MEDS: ASPIRIN 81MG TABLET PO SCH (13:13)
[2018-10-22] MEDS: POTASSIUM CHLORIDE 20MEQ TABLET SR PO SCH (13:13)
[2018-10-22] MEDS: LOSARTAN POTASSIUM 50 MG TABLET PO SCH (13:13)
[2018-10-22] MEDS: ENOXAPARIN 40MG/0.4ML SYR SUBCUT SCH (13:14)
[2018-10-22 20:00] VITALS: BP 147/113
[2018-10-22] MEDS: FUROSEMIDE 40MG/4ML VIAL IV SCH (20:41)
[2018-10-22] MEDS: CARVEDILOL 6.25 MG TABLET PO SCH (20:42)
[2018-10-22 21:50] VITALS: BP 126/90
[2018-10-23] VITALS: BP 115/82
[2018-10-23 04:00] VITALS: BP 120/22
[2018-10-23 05:49] LABS: BASOPHILS % 0.8 % (0.0-2.0); EOSINOPHILS % 4.2 % (0.0-5.0); HEMATOCRIT. 33.7 % (42.0-52.0); HEMOGLOBIN. 11.5 g/dL (14.0-18.0); LYMPHOCYTES % 13.5 % (20.0-50.0); MEAN CORPUSCULAR HEMOGLOBIN 29.3 pg (28.0-32.0); MEAN CORPUSCULAR VOLUME 86.1 fL (80.0-94.0); MEAN PLATELET VOLUME 8.7 fl (7.4-10.4); MONOCYTES % 12.1 % (2.0-8.0); NEUTROPHILS % 69.4 % (40.0-76.0); PLATELET 319 x1000/uL (130-400); RED BLOOD CELL COUNT 3.92 mill/uL (4.7-6.1); RED CELL DISTRIBUTION WIDTH 14.1 % (11.6-14.6)
[2018-10-23 05:58] LABS: CHLORIDE 106 mEq/L (98-107)
[2018-10-23 08:00] VITALS: BP 140/104
[2018-10-23] MEDS: ASPIRIN 81MG TABLET PO SCH (08:55)
[2018-10-23] MEDS: PANTOPRAZOLE SODIUM 40 MG/VIAL IV SCH (08:55)
[2018-10-23] MEDS: POTASSIUM CHLORIDE 20MEQ TABLET SR PO SCH (08:55)
[2018-10-23] MEDS: CARVEDILOL 6.25 MG TABLET PO SCH ×2 (08:55→20:21)
[2018-10-23] MEDS: FUROSEMIDE 40MG/4ML VIAL IV SCH ×2 (08:55→20:20)
[2018-10-23] MEDS: LOSARTAN POTASSIUM 50 MG TABLET PO SCH (08:55)
[2018-10-23] MEDS: IPRATROPIUM/ALBUTEROL 0.5-3(2.5)MG/3ML NEB INH PRN (09:20)
[2018-10-23 12:00] VITALS: BP 123/90
[2018-10-23] MEDS: ENOXAPARIN 40MG/0.4ML SYR SUBCUT SCH (12:13)
[2018-10-23 16:00] VITALS: BP 129/96
[2018-10-23 20:00] VITALS: BP 140/91
[2018-10-24] VITALS: BP 139/86
[2018-10-24 04:00] VITALS: BP 144/90
[2018-10-24 06:50] LABS: BASOPHILS % 1.2 % (0.0-2.0); EOSINOPHILS % 6.5 % (0.0-5.0); HEMATOCRIT. 34.2 % (42.0-52.0); HEMOGLOBIN. 11.8 g/dL (14.0-18.0); LYMPHOCYTES % 16.3 % (20.0-50.0); MEAN CORPUSCULAR HEMOGLOBIN 29.8 pg (28.0-32.0); MONOCYTES % 13.9 % (2.0-8.0); NEUTROPHILS % 62.1 % (40.0-76.0); RED BLOOD CELL COUNT 3.97 mill/uL (4.7-6.1); RED CELL DISTRIBUTION WIDTH 14.1 % (11.6-14.6)
[2018-10-24 07:12] LABS: CHLORIDE 103 mEq/L (98-107)
[2018-10-24 08:00] VITALS: BP 136/98
[2018-10-24] MEDS: PANTOPRAZOLE SODIUM 40 MG/VIAL IV SCH (08:24)
[2018-10-24] MEDS: LOSARTAN POTASSIUM 50 MG TABLET PO SCH (08:25)
[2018-10-24] MEDS: CARVEDILOL 6.25 MG TABLET PO SCH (08:25)
[2018-10-24] MEDS: POTASSIUM CHLORIDE 20MEQ TABLET SR PO SCH (08:25)
[2018-10-24] MEDS: ASPIRIN 81MG TABLET PO SCH (08:25)
[2018-10-24] MEDS: FUROSEMIDE 40MG/4ML VIAL IV SCH (08:25)
[2018-10-24 08:51] LABS: PLATELET 324 x1000/uL (130-400)
[2018-10-24] MEDS: ENOXAPARIN 40MG/0.4ML SYR SUBCUT SCH (13:00)
[2018-10-24 13:51] VITALS: BP 131/91
[2018-10-24] MEDS ORDERED: FUROSEMIDE 40MG TABLET PO SCH (17:15)
== END 2018-10-24 15:15 | disposition home or self-care (01) | DRG 194 ==
LOC: ER 15:57 → 5WST 18:29 → EDBEDREQ 18:32 → ENRESERV 22:20
PROVIDERS: ADMIT Internal Medicine; ATTEND Internal Medicine
DX: I11.0 Hypertensive heart disease with heart failure (principal); I42.0 Dilated cardiomyopathy; I50.23 Acute on chronic systolic (congestive) heart failure; F14.90 Cocaine use, unspecified, uncomplicated; K29.70 Gastritis, unspecified, without bleeding; K44.9 Diaphragmatic hernia without obstruction or gangrene; F19.10 Other psychoactive substance abuse, uncomplicated; J44.9 Chronic obstructive pulmonary disease, unspecified; K52.9 Noninfective gastroenteritis and colitis, unspecified; D72.821 Monocytosis (symptomatic); E78.5 Hyperlipidemia, unspecified; Z91.19 Patient's noncompliance with other medical treatment and regimen; Z88.0 Allergy status to penicillin; Z79.82 Long term (current) use of aspirin; Z79.899 Other long term (current) drug therapy
CPT/HCPCS: 36415; 71045; 80048; 80305; 82550; 82553; 83735; 83880; 84100; 84145; 84484; 93005; 94640; 96361; 96374; 96375; 99285; C9113; J1650; J1885; J1940; J2405; J7050; J7620

== ENCOUNTER 2018-11-02 06:48 | Inpatient (IN) | payer MEDICAID ==
[2018-11-02] VITALS (33 sets, daily range): BP systolic 72–157; BP diastolic 52–119
[~2018-11-02] VITALS: Ht 175.3 cm; Wt 54.6 kg
[2018-11-02] MEDS ORDERED: ALBUTEROL (0.083%) 2.5MG/3ML NEB HHN STA (07:01)
[2018-11-02 07:24] LABS: BASOPHILS % 0.9 % (0.0-2.0); HEMATOCRIT. 40.2 % (42.0-52.0); HEMOGLOBIN. 13.2 g/dL (14.0-18.0); LYMPHOCYTES % 17.9 % (20.0-50.0); MEAN CORPUSCULAR HEMOGLOBIN 29.1 pg (28.0-32.0); MEAN CORPUSCULAR VOLUME 88.7 fL (80.0-94.0); MEAN PLATELET VOLUME 8.1 fl (7.4-10.4); NEUTROPHILS % 69.2 % (40.0-76.0); PLATELET 390 x1000/uL (130-400); RED BLOOD CELL COUNT 4.53 mill/uL (4.7-6.1); RED CELL DISTRIBUTION WIDTH 14.4 % (11.6-14.6)
[2018-11-02 07:31] LABS: CHLORIDE 110 mEq/L (98-107)
[2018-11-02] MEDS ORDERED: SUCCINYLCHOLINE CHLORIDE 200MG/10ML IV ONE (07:37)
[2018-11-02] MEDS ORDERED: ETOMIDATE 2MG/ML 10ML VIAL IV ONE ×2 (07:37→07:45)
[2018-11-02] MEDS ORDERED: MIDAZOLAM HCL 50 MG in DEXTROSE 5% WATER 40 ML IV ONE (07:45)
[2018-11-02] MEDS ORDERED: FUROSEMIDE 40MG/4ML VIAL IVP ONE (07:45)
[2018-11-02] MEDS ORDERED: NITROGLYCERIN 0.1MG/HR PATCH TOP ONE (07:45)
[2018-11-02] MEDS ORDERED: MIDAZOLAM HCL 2 MG/2 ML VIAL IV ONE (07:45)
[2018-11-02] MEDS ORDERED: MIDAZOLAM HCL 50 MG in DEXTROSE 5% WATER 40 ML IV PRN (08:00)
[2018-11-02] MEDS ORDERED: ASPIRIN 300MG SUPP PR ONE (08:15)
[2018-11-02 08:54] LABS: BG BASE EXCESS -12.4 mmol/L (-2.0-2.0); BG CARBOXYHEMOGLOBIN 1.4 % (0.5-1.5); BG DEOXYHEMOGLOBIN 30.9 % (0.0-5.0); BG FRACTION INSPIRED OXYGEN 100; BG HCO3 ACT 21.6 mmol/L (22.0-26.0); BG METHEMOGLOBIN 0.1 % (0.0-1.5); BG OXYGEN SATURATION 68.6 % (92.0-98.5); BG OXYHEMOGLOBIN 67.6 % (94.0-97.0); BG PCO2 102.6 mmHg (35.0-45.0); BG PH 6.941 (7.350-7.450); BG SAMPLE SITE RIGHT RADIAL; BG TIDAL VOLUME(mL) 500 mL; BG TOTAL HEMOGLOBIN 12.7 g/dL (12.0-18.0); BG VENT MODE VENT - A/C; BG VENT RATE 16 set
[2018-11-02] MEDS ORDERED: ENOXAPARIN 40MG/0.4ML SYR SUBCUT SCH (09:00)
[2018-11-02] MEDS ORDERED: GUAIFENESIN 200MG/10ML SUGAR FREE UDC PO PRN (09:00)
[2018-11-02] MEDS ORDERED: ONDANSETRON HCL 4MG/2ML INJ IV PRN (09:00)
[2018-11-02] MEDS ORDERED: DIPHENHYDRAMINE 50MG/ML VIAL IV PRN (09:00)
[2018-11-02] MEDS ORDERED: DOCUSATE SODIUM 100MG CAPSULE PO PRN (09:00)
[2018-11-02] MEDS ORDERED: ACETAMINOPHEN 650MG SUPP PR PRN (09:00)
[2018-11-02 09:07] LABS: *BARBITURATES SCREEN URINE NEGATIVE (NEGATIVE); *BENZODIAZEPINES SCREEN URINE PRESUMTIVE POSITIVE (NEGATIVE); *COCAINE SCREEN URINE PRESUMTIVE POSITIVE (NEGATIVE)
[2018-11-02 09:08] LABS: *AMPHETAMINES SCREEN URINE NEGATIVE (NEGATIVE); CANNABINOID URINE SCREEN PRESUMTIVE POSITIVE (NEGATIVE); METHADONE URINE SCREEN NEGATIVE (NEGATIVE); OPIATES URINE SCREEN NEGATIVE (NEGATIVE); PHENCYCLIDINE URINE SCREEN NEGATIVE (NEGATIVE)
[2018-11-02] MEDS ORDERED: PROPOFOL 10MG/ML 100ML 100 ML IV SCH (09:15)
[2018-11-02] MEDS ORDERED: PHENYLEPHRINE 40 MG in DEXTROSE 5% WATER 250 ML IV PRN (11:30)
[2018-11-02] MEDS: PROPOFOL 10MG/ML 100ML 100 ML IV PRN ×2 (12:09→19:02)
[2018-11-02] MEDS: FENTANYL 500 MCG in SODIUM CHLORIDE 0.9% 50 ML IV PRN ×2 (12:10→21:11)
[2018-11-02] MEDS ORDERED: LIDOCAINE HCL 1% 20ML VIAL (Pyxis) INJ ONE (12:19)
[2018-11-02] MEDS ORDERED: IPRATROPIUM/ALBUTEROL 0.5-3(2.5)MG/3ML NEB HHN PRN (13:00)
[2018-11-02 13:17] LABS: BG BASE EXCESS -4.5 mmol/L (-2.0-2.0); BG CARBOXYHEMOGLOBIN 0.6 % (0.5-1.5); BG DEOXYHEMOGLOBIN 1.8 % (0.0-5.0); BG FRACTION INSPIRED OXYGEN 100; BG HCO3 ACT 21.2 mmol/L (22.0-26.0); BG METHEMOGLOBIN 0.2 % (0.0-1.5); BG OXYGEN SATURATION 98.2 % (92.0-98.5); BG OXYHEMOGLOBIN 97.4 % (94.0-97.0); BG PCO2 41.8 mmHg (35.0-45.0); BG PH 7.324 (7.350-7.450); BG PO2 132.4 mmHg (75.0-100.0); BG SAMPLE SITE RIGHT RADIAL; BG TIDAL VOLUME(mL) 500 mL; BG VENT MODE VENT - A/C; BG VENT RATE 20 set
[2018-11-02] MEDS: METHYLPREDNISOLONE SOD SUCC 125 MG/2 ML VIAL IV SCH ×2 (14:40→18:42)
[2018-11-02] MEDS: ENOXAPARIN 40MG/0.4ML SYR SUBCUT SCH (14:40)
[2018-11-02] MEDS: LEVOFLOXACIN 750MG PREMIX 150 ML IV SCH (14:40)
[2018-11-02 16:04] LABS: CREATINE KINASE MB FRACTION 1.8 ng/mL (0.5-3.6)
[2018-11-02] MEDS: ACETYLCYSTEINE 100MG/ML 10% VIAL 4ML INH SCH (16:25)
[2018-11-02] MEDS: IPRATROPIUM/ALBUTEROL 0.5-3(2.5)MG/3ML NEB HHN SCH ×2 (16:25→20:37)
[2018-11-02] MEDS ORDERED: DEXTROSE 50% WATER 50ML SYRINGE IV PRN (18:30)
[2018-11-02] MEDS ORDERED: BLOOD SUGAR DIAGNOSTIC STRIP TEST SCH (21:00)
[2018-11-02] MEDS ORDERED: INSULIN LISPRO 100 UNITS/ML SUBCUT SCH (21:00)
[2018-11-02 23:12] LABS: CREATINE KINASE MB FRACTION 1.4 ng/mL (0.5-3.6)
[2018-11-03] VITALS (59 sets, daily range): BP systolic 83–129; BP diastolic 48–95
[2018-11-03] MEDS: ACETYLCYSTEINE 100MG/ML 10% VIAL 4ML INH SCH ×2 (00:10→08:03)
[2018-11-03] MEDS: IPRATROPIUM/ALBUTEROL 0.5-3(2.5)MG/3ML NEB HHN SCH ×7 (00:10→23:50)
[2018-11-03] MEDS: PROPOFOL 10MG/ML 100ML 100 ML IV PRN ×5 (00:29→22:11)
[2018-11-03] MEDS: METHYLPREDNISOLONE SOD SUCC 125 MG/2 ML VIAL IV SCH ×3 (00:30→12:03)
[2018-11-03] MEDS: BLOOD SUGAR DIAGNOSTIC STRIP TEST SCH ×5 (00:30→23:18)
[2018-11-03 05:40] LABS: CHLORIDE 109 mEq/L (98-107)
[2018-11-03 05:42] LABS: HEMATOCRIT. 32.5 % (42.0-52.0); HEMOGLOBIN. 10.7 g/dL (14.0-18.0); MEAN CORPUSCULAR HEMOGLOBIN 28.8 pg (28.0-32.0); MEAN CORPUSCULAR VOLUME 87.4 fL (80.0-94.0); MEAN PLATELET VOLUME 8.4 fl (7.4-10.4); PLATELET 312 x1000/uL (130-400); RED BLOOD CELL COUNT 3.72 mill/uL (4.7-6.1); RED CELL DISTRIBUTION WIDTH 13.8 % (11.6-14.6)
[2018-11-03 05:52] LABS: LDL CHOLESTEROL 57 mg/dL (5-100)
[2018-11-03 05:53] LABS: HDL CHOLESTEROL 72 mg/dL (40-59)
[2018-11-03] MEDS: INSULIN LISPRO 100 UNITS/ML SUBCUT SCH ×5 (06:00→23:18)
[2018-11-03 08:20] LABS: BG BASE EXCESS -0.7 mmol/L (-2.0-2.0); BG DEOXYHEMOGLOBIN 0.8 % (0.0-5.0); BG FRACTION INSPIRED OXYGEN 50; BG HCO3 ACT 24.9 mmol/L (22.0-26.0); BG METHEMOGLOBIN 0.3 % (0.0-1.5); BG OXYGEN SATURATION 99.2 % (92.0-98.5); BG OXYHEMOGLOBIN 97.9 % (94.0-97.0); BG PCO2 45.2 mmHg (35.0-45.0); BG PH 7.359 (7.350-7.450); BG SAMPLE SITE RIGHT RADIAL; BG TIDAL VOLUME(mL) 500 mL; BG VENT MODE VENT - A/C; BG VENT RATE 16 set
[2018-11-03] MEDS: PANTOPRAZOLE SODIUM 40 MG/VIAL IV SCH (08:55)
[2018-11-03 08:57] LABS: PLATELET ESTIMATE NORMAL
[2018-11-03] MEDS: FUROSEMIDE 40MG/4ML VIAL IVP SCH ×2 (09:00→17:48)
[2018-11-03] MEDS ORDERED: FUROSEMIDE 40MG/4ML VIAL IVP SCH ×3 (09:00→17:15)
[2018-11-03] MEDS: ENOXAPARIN 40MG/0.4ML SYR SUBCUT SCH (10:44)
[2018-11-03] MEDS: RISPERIDONE 0.5MG TABLET PO SCH ×2 (11:52→17:48)
[2018-11-03] MEDS: METOCLOPRAMIDE HCL 10MG/2ML VIAL IV SCH ×3 (12:03→23:18)
[2018-11-03] MEDS: LEVOFLOXACIN 750MG PREMIX 150 ML IV SCH (12:05)
[2018-11-03] MEDS: FENTANYL 500 MCG in SODIUM CHLORIDE 0.9% 50 ML IV PRN (12:59)
[2018-11-03] MEDS: METRONIDAZOLE 500 MG PREMIX 100 ML IV SCH ×2 (17:48→23:17)
[2018-11-03 20:16] LABS: CLARITY URINE CLEAR (CLEAR); COLOR URINE YELLOW (YELLOW); KETONES URINE NEGATIVE (NEGATIVE); LEUKOCYTE ESTERASE URINE NEGATIVE (NEGATIVE); NITRITE URINE NEGATIVE (NEGATIVE); OCCULT BLOOD URINE 1+ (NEGATIVE); PROTEIN URINE NEGATIVE (NEGATIVE); SPECIFIC GRAVITY URINE 1.009 (1.005-1.030); UROBILINOGEN URINE 0.2 E.U./dL (0.2-1.0)
[2018-11-03] MEDS: METHYLPREDNISOLONE SOD SUCC 40 MG/ML VIAL IV SCH (21:26)
[2018-11-04] VITALS (95 sets, daily range): BP systolic 92–160; BP diastolic 50–106
[2018-11-04] MEDS: BUDESONIDE 0.5MG/2ML NEB HHN SCH (00:36)
[2018-11-04] MEDS: IPRATROPIUM/ALBUTEROL 0.5-3(2.5)MG/3ML NEB HHN SCH ×4 (00:37→20:32)
[2018-11-04] MEDS: FENTANYL 500 MCG in SODIUM CHLORIDE 0.9% 50 ML IV PRN ×2 (00:49→10:43)
[2018-11-04] MEDS: PROPOFOL 10MG/ML 100ML 100 ML IV PRN (03:58)
[2018-11-04] MEDS: BLOOD SUGAR DIAGNOSTIC STRIP TEST SCH ×4 (05:15→23:58)
[2018-11-04] MEDS: INSULIN LISPRO 100 UNITS/ML SUBCUT SCH ×4 (05:15→23:58)
[2018-11-04 05:46] LABS: HEMATOCRIT. 28.9 % (42.0-52.0); HEMOGLOBIN. 9.7 g/dL (14.0-18.0); MEAN CORPUSCULAR HEMOGLOBIN 29.3 pg (28.0-32.0); MEAN PLATELET VOLUME 8.4 fl (7.4-10.4); PLATELET 289 x1000/uL (130-400); RED BLOOD CELL COUNT 3.32 mill/uL (4.7-6.1); RED CELL DISTRIBUTION WIDTH 13.9 % (11.6-14.6)
[2018-11-04 06:09] LABS: T4 FREE 1.1 ng/dL (0.76-1.46)
[2018-11-04] MEDS: METOCLOPRAMIDE HCL 10MG/2ML VIAL IV SCH ×3 (06:21→18:49)
[2018-11-04] MEDS: FUROSEMIDE 40MG/4ML VIAL IVP SCH (06:21)
[2018-11-04 07:22] LABS: PLATELET ESTIMATE NORMAL
[2018-11-04 07:35] LABS: BG BASE EXCESS 0.2 mmol/L (-2.0-2.0); BG CARBOXYHEMOGLOBIN 0.4 % (0.5-1.5); BG DEOXYHEMOGLOBIN 1.4 % (0.0-5.0); BG FRACTION INSPIRED OXYGEN 35; BG HCO3 ACT 26.1 mmol/L (22.0-26.0); BG METHEMOGLOBIN 0.2 % (0.0-1.5); BG OXYGEN SATURATION 98.6 % (92.0-98.5); BG PCO2 47.8 mmHg (35.0-45.0); BG PH 7.355 (7.350-7.450); BG SAMPLE SITE LEFT RADIAL; BG TIDAL VOLUME(mL) 500 mL; BG TOTAL HEMOGLOBIN 10.9 g/dL (12.0-18.0); BG VENT MODE VENT - A/C; BG VENT RATE 16 set
[2018-11-04] MEDS: METHYLPREDNISOLONE SOD SUCC 40 MG/ML VIAL IV SCH (08:52)
[2018-11-04] MEDS: RISPERIDONE 0.5MG TABLET PO SCH ×2 (08:52→18:49)
[2018-11-04] MEDS: PANTOPRAZOLE SODIUM 40 MG/VIAL IV SCH (08:52)
[2018-11-04] MEDS: METRONIDAZOLE 500 MG PREMIX 100 ML IV SCH ×2 (08:53→18:49)
[2018-11-04] MEDS ORDERED: LORAZEPAM 2MG/ML CPJ IV ONE (09:45)
[2018-11-04] MEDS ORDERED: LORAZEPAM 2MG/ML CPJ IV NR (11:30)
[2018-11-04 11:53] LABS: BG CARBOXYHEMOGLOBIN 0.3 % (0.5-1.5); BG FRACTION INSPIRED OXYGEN 35; BG HCO3 ACT 24.9 mmol/L (22.0-26.0); BG METHEMOGLOBIN 0.2 % (0.0-1.5); BG OXYHEMOGLOBIN 98.5 % (94.0-97.0); BG PCO2 37.3 mmHg (35.0-45.0); BG PH 7.443 (7.350-7.450); BG PO2 180.7 mmHg (75.0-100.0); BG PRESSURE SUPPORT 8; BG SAMPLE SITE LEFT BRACHIAL; BG TOTAL HEMOGLOBIN 10.8 g/dL (12.0-18.0); BG VENT MODE VENT - CPAP
[2018-11-04 18:59] LABS: CLARITY URINE CLEAR (CLEAR); COLOR URINE YELLOW (YELLOW); KETONES URINE NEGATIVE (NEGATIVE); LEUKOCYTE ESTERASE URINE NEGATIVE (NEGATIVE); NITRITE URINE NEGATIVE (NEGATIVE); OCCULT BLOOD URINE NEGATIVE (NEGATIVE); PROTEIN URINE NEGATIVE (NEGATIVE); SPECIFIC GRAVITY URINE 1.017 (1.005-1.030); UROBILINOGEN URINE 0.2 E.U./dL (0.2-1.0)
[2018-11-05] VITALS (77 sets, daily range): BP systolic 111–184; BP diastolic 49–112
[2018-11-05] MEDS: METOCLOPRAMIDE HCL 10MG/2ML VIAL IV SCH ×4 (00:03→18:03)
[2018-11-05] MEDS: METRONIDAZOLE 500 MG PREMIX 100 ML IV SCH ×3 (00:03→16:06)
[2018-11-05] MEDS: IPRATROPIUM/ALBUTEROL 0.5-3(2.5)MG/3ML NEB HHN SCH ×7 (00:36→23:55)
[2018-11-05 04:56] LABS: BASOPHILS % 0.3 % (0.0-2.0); HEMATOCRIT. 28.2 % (42.0-52.0); HEMOGLOBIN. 9.7 g/dL (14.0-18.0); LYMPHOCYTES % 7.5 % (20.0-50.0); MEAN CORPUSCULAR HEMOGLOBIN 29.6 pg (28.0-32.0); MEAN CORPUSCULAR VOLUME 86.4 fL (80.0-94.0); MEAN PLATELET VOLUME 8.7 fl (7.4-10.4); MONOCYTES % 8.3 % (2.0-8.0); NEUTROPHILS % 83.9 % (40.0-76.0); PLATELET 306 x1000/uL (130-400); RED BLOOD CELL COUNT 3.27 mill/uL (4.7-6.1); RED CELL DISTRIBUTION WIDTH 13.7 % (11.6-14.6)
[2018-11-05 05:04] LABS: CHLORIDE 106 mEq/L (98-107)
[2018-11-05 05:12] LABS: PHOSPHORUS 3.2 mg/dL (2.5-4.9)
[2018-11-05] MEDS: INSULIN LISPRO 100 UNITS/ML SUBCUT SCH (06:00)
[2018-11-05] MEDS: BLOOD SUGAR DIAGNOSTIC STRIP TEST SCH (06:25)
[2018-11-05] MEDS: FUROSEMIDE 40MG/4ML VIAL IVP SCH (08:35)
[2018-11-05] MEDS: PANTOPRAZOLE SODIUM 40 MG/VIAL IV SCH (08:35)
[2018-11-05] MEDS: RISPERIDONE 0.5MG TABLET PO SCH ×2 (08:36→16:06)
[2018-11-05] MEDS: BUDESONIDE 0.5MG/2ML NEB HHN SCH (08:48)
[2018-11-05] MEDS: LEVOFLOXACIN 750MG PREMIX 150 ML IV SCH (11:15)
[2018-11-06] VITALS (33 sets, daily range): BP systolic 122–181; BP diastolic 39–128
[2018-11-06] MEDS: METRONIDAZOLE 500 MG PREMIX 100 ML IV SCH ×3 (00:01→17:38)
[2018-11-06] MEDS: METOCLOPRAMIDE HCL 10MG/2ML VIAL IV SCH ×2 (00:01→05:37)
[2018-11-06] MEDS ORDERED: CLONIDINE 0.1MG TABLET PO PRN (00:45)
[2018-11-06] MEDS: IPRATROPIUM/ALBUTEROL 0.5-3(2.5)MG/3ML NEB HHN SCH ×4 (04:00→20:37)
[2018-11-06 05:34] LABS: BASOPHILS % 0.2 % (0.0-2.0); EOSINOPHILS % 0.4 % (0.0-5.0); HEMATOCRIT. 29.9 % (42.0-52.0); LYMPHOCYTES % 12.8 % (20.0-50.0); MEAN CORPUSCULAR HEMOGLOBIN 28.8 pg (28.0-32.0); MEAN CORPUSCULAR VOLUME 86.6 fL (80.0-94.0); MEAN PLATELET VOLUME 8.3 fl (7.4-10.4); MONOCYTES % 11.3 % (2.0-8.0); NEUTROPHILS % 75.3 % (40.0-76.0); PLATELET 304 x1000/uL (130-400); RED BLOOD CELL COUNT 3.46 mill/uL (4.7-6.1); RED CELL DISTRIBUTION WIDTH 13.8 % (11.6-14.6)
[2018-11-06 05:48] LABS: CHLORIDE 105 mEq/L (98-107)
[2018-11-06 05:55] LABS: PHOSPHORUS 1.7 mg/dL (2.5-4.9)
[2018-11-06] MEDS: FUROSEMIDE 40MG/4ML VIAL IVP SCH (08:09)
[2018-11-06] MEDS: PANTOPRAZOLE SODIUM 40 MG/VIAL IV SCH (08:09)
[2018-11-06] MEDS: RISPERIDONE 0.5MG TABLET PO SCH ×2 (08:09→17:38)
[2018-11-06] MEDS: LOSARTAN POTASSIUM 25 MG TABLET PO SCH (08:10)
[2018-11-06] MEDS ORDERED: POTASSIUM PHOS,M-BASIC-D-BASIC 30 MMOL in SODIUM CHLORIDE 0.9% 500 ML IV SCH (09:00)
[2018-11-06 09:10] LABS: *CREATININE RANDOM URINE 81.6 mg/dL (Not Estab.); MICROALBUMIN RANDOM URINE 10.3 ug/mL (Not Estab.)
[2018-11-06 09:42] LABS: CLARITY URINE CLEAR (CLEAR); COLOR URINE YELLOW (YELLOW); KETONES URINE NEGATIVE (NEGATIVE); LEUKOCYTE ESTERASE URINE NEGATIVE (NEGATIVE); NITRITE URINE NEGATIVE (NEGATIVE); OCCULT BLOOD URINE NEGATIVE (NEGATIVE); PH URINE 7.5 (4.5-8.0); PROTEIN URINE NEGATIVE (NEGATIVE); SPECIFIC GRAVITY URINE 1.006 (1.005-1.030); UROBILINOGEN URINE 0.2 E.U./dL (0.2-1.0)
[2018-11-06] MEDS: GUAIFENESIN 600MG ER TABLET PO SCH ×2 (10:24→20:51)
[2018-11-06] MEDS ORDERED: MAGNESIUM 1 G PREMIX 100 ML IV ONE (11:45)
[2018-11-06] MEDS: BUDESONIDE 0.5MG/2ML NEB HHN SCH ×2 (13:44→20:37)
[2018-11-07] VITALS: BP 125/60
[2018-11-07] MEDS: IPRATROPIUM/ALBUTEROL 0.5-3(2.5)MG/3ML NEB HHN SCH ×4 (00:20→13:37)
[2018-11-07] MEDS: METRONIDAZOLE 500 MG PREMIX 100 ML IV SCH ×3 (02:26→17:08)
[2018-11-07 04:00] VITALS: BP 118/64
[2018-11-07 07:16] LABS: BASOPHILS % 0.2 % (0.0-2.0); EOSINOPHILS % 4.2 % (0.0-5.0); HEMATOCRIT. 35.5 % (42.0-52.0); HEMOGLOBIN. 11.8 g/dL (14.0-18.0); LYMPHOCYTES % 18.2 % (20.0-50.0); MEAN CORPUSCULAR HEMOGLOBIN 28.6 pg (28.0-32.0); MEAN PLATELET VOLUME 8.2 fl (7.4-10.4); MONOCYTES % 14.6 % (2.0-8.0); NEUTROPHILS % 62.8 % (40.0-76.0); PLATELET 352 x1000/uL (130-400); RED BLOOD CELL COUNT 4.13 mill/uL (4.7-6.1); RED CELL DISTRIBUTION WIDTH 13.7 % (11.6-14.6)
[2018-11-07 07:51] LABS: CHLORIDE 104 mEq/L (98-107)
[2018-11-07 08:00] VITALS: BP 143/86
[2018-11-07 08:05] LABS: PHOSPHORUS 1.9 mg/dL (2.5-4.9)
[2018-11-07] MEDS: BUDESONIDE 0.5MG/2ML NEB HHN SCH (08:54)
[2018-11-07] MEDS: GUAIFENESIN 600MG ER TABLET PO SCH ×2 (09:00→21:23)
[2018-11-07] MEDS: LOSARTAN POTASSIUM 25 MG TABLET PO SCH (10:14)
[2018-11-07] MEDS: FUROSEMIDE 40MG/4ML VIAL IVP SCH (10:14)
[2018-11-07] MEDS: RISPERIDONE 0.5MG TABLET PO SCH ×2 (10:15→17:09)
[2018-11-07] MEDS ORDERED: PANTOPRAZOLE 40MG DR TABLET PO SCH (10:30)
[2018-11-07 12:00] VITALS: BP 112/68
[2018-11-07] MEDS: LEVOFLOXACIN 750MG PREMIX 150 ML IV SCH (13:03)
[2018-11-07 13:11] LABS: ANTI-MYELOPEROXIDASE AB < 9.0 U/mL (0.0-9.0); ANTI-PROTEINASE 3 ABS < 3.5 U/mL (0.0-3.5)
[2018-11-07] MEDS ORDERED: DILTIAZEM HCL 5MG/ML 5ML VIAL IV SCH (14:00)
[2018-11-07] MEDS: DILTIAZEM HCL 60MG TABLET PO SCH ×2 (15:25→21:23)
[2018-11-07 16:00] VITALS: BP 135/95
[2018-11-07 17:11] LABS: ATYPICAL P-ANCA <1:20 titer (Neg:<1:20); CYTOPLASMIC C-ANCA <1:20 titer (Neg:<1:20); PERINUCLEAR P-ANCA <1:20 titer (Neg:<1:20)
[2018-11-07 20:00] VITALS: BP 127/91
[2018-11-07] MEDS ORDERED: MORPHINE SULFATE 4 MG/ML CPJ (NOT FOR IM USE) IV PRN (21:45)
[2018-11-08] VITALS: BP 108/80
[2018-11-08] MEDS: METRONIDAZOLE 500 MG PREMIX 100 ML IV SCH ×2 (00:09→09:43)
[2018-11-08 04:00] VITALS: BP 129/86
[2018-11-08] MEDS ORDERED: PANTOPRAZOLE 40MG DR TABLET PO SCH (06:00)
[2018-11-08 06:05] LABS: HEMATOCRIT. 33.7 % (42.0-52.0); HEMOGLOBIN. 11.5 g/dL (14.0-18.0); MEAN CORPUSCULAR HEMOGLOBIN 29.1 pg (28.0-32.0); MEAN PLATELET VOLUME 8.2 fl (7.4-10.4); PLATELET 348 x1000/uL (130-400); RED BLOOD CELL COUNT 3.96 mill/uL (4.7-6.1); RED CELL DISTRIBUTION WIDTH 13.6 % (11.6-14.6)
[2018-11-08] MEDS: DILTIAZEM HCL 60MG TABLET PO SCH ×2 (06:09→14:03)
[2018-11-08 07:19] LABS: CHLORIDE 104 mEq/L (98-107)
[2018-11-08 07:42] LABS: PLATELET ESTIMATE NORMAL
[2018-11-08 08:00] VITALS: BP 134/99
[2018-11-08] MEDS ORDERED: FAMOTIDINE 20MG TABLET PO SCH (09:00)
[2018-11-08] MEDS: FUROSEMIDE 40MG/4ML VIAL IVP SCH (09:44)
[2018-11-08] MEDS: GUAIFENESIN 600MG ER TABLET PO SCH (09:44)
[2018-11-08] MEDS: RISPERIDONE 0.5MG TABLET PO SCH (09:44)
[2018-11-08] MEDS: LOSARTAN POTASSIUM 25 MG TABLET PO SCH (09:44)
[2018-11-08 12:00] VITALS: BP 119/84
[2018-11-08] MEDS ORDERED: LEVOFLOXACIN 250MG TABLET PO SCH (15:00)
[2018-11-08 15:16] VITALS: BP 119/84
[2018-11-09] MEDS ORDERED: METRONIDAZOLE 500MG TABLET PO SCH (06:00)
== END 2018-11-08 16:15 | disposition home or self-care (01) | DRG 133 ==
LOC: ER 07:03 → EDBEDREQSVC 07:35 → CVICU 07:48 → EDBEDREQ 07:51 → ENRESERV 09:57 → 5WST 11-06 10:59
PROVIDERS: ADMIT Internal Medicine; ATTEND Internal Medicine
PROC: 5A1945Z Respiratory Ventilation, 24-96 Consecutive Hours (ICD-10-PCS; principal; 2018-11-02)
PROC: 5A09357 Assistance with Respiratory Ventilation, Less than 24 Consecutive Hours, Continuous Positive Airway Pressure (ICD-10-PCS; 2018-11-02)
PROC: 0BH17EZ Insertion of Endotracheal Airway into Trachea, Via Natural or Artificial Opening (ICD-10-PCS; 2018-11-02)
PROC: 02HV33Z Insertion of Infusion Device into Superior Vena Cava, Percutaneous Approach (ICD-10-PCS; 2018-11-02)
PROC: B548ZZA Ultrasonography of Superior Vena Cava, Guidance (ICD-10-PCS; 2018-11-02)
DX: J96.01 Acute respiratory failure with hypoxia (principal); E43 Unspecified severe protein-calorie malnutrition; I50.23 Acute on chronic systolic (congestive) heart failure; J18.1 Lobar pneumonia, unspecified organism; E87.2 Acidosis; N17.9 Acute kidney failure, unspecified; I95.9 Hypotension, unspecified; I13.0 Hypertensive heart and chronic kidney disease with heart failure and stage 1 through stage 4 chronic kidney disease, or unspecified chronic kidney disease; I42.0 Dilated cardiomyopathy; N18.3 Chronic kidney disease, stage 3 (moderate); E83.39 Other disorders of phosphorus metabolism; J96.02 Acute respiratory failure with hypercapnia; I42.9 Cardiomyopathy, unspecified; K76.1 Chronic passive congestion of liver; J44.9 Chronic obstructive pulmonary disease, unspecified; D64.9 Anemia, unspecified; F12.10 Cannabis abuse, uncomplicated; F14.10 Cocaine abuse, uncomplicated; F17.210 Nicotine dependence, cigarettes, uncomplicated; Z78.1 Physical restraint status; Z88.0 Allergy status to penicillin; Z91.19 Patient's noncompliance with other medical treatment and regimen; Z87.81 Personal history of (healed) traumatic fracture; Z68.1 Body mass index [BMI] 19.9 or less, adult
CPT/HCPCS: 31500; 36415; 36569; 36600; 71045; 71250; 74018; 76770; 76937; 80048; 80061; 80305; 82043; 82270; 82375; 82550; 82553; 82570; 82805; 82962; 83036; 83520; 83735; 83880; 84100; 84300; 84439; 84443; 84478; 84481; 84484; 85044; 86256; 87070; 87804; 92610; 93005; 93306; 93970; 94002; 94660; 96365; 96366; 96375; 99291; C1725; C9113; J0330; J1200; J1650; J1940; J1956; J2060; J2250; J2270; J2704; J2765; J2920; J2930; J3010; J3490; J7040; J7050; J7060; J7608; J7611; J7620; J7626; A4315

== ENCOUNTER 2019-05-10 04:47 | Inpatient (IN) | payer MEDICAID ==
[2019-05-10] VITALS (33 sets, daily range): BP systolic 96–160; BP diastolic 58–119
[~2019-05-10] VITALS: Ht 170.2 cm; Wt 53.6 kg
[~2019-05-10 04:47] MED LIST changes: +OMEP40CA12 MT; -OMEP40CA34 MT
[2019-05-10] MEDS ORDERED: ONDANSETRON HCL 4MG/2ML INJ IV STA (05:04)
[2019-05-10] MEDS ORDERED: IPRATROPIUM BROMIDE (0.02%) 0.5MG/2.5ML NEB HHN STA (05:04)
[2019-05-10] MEDS ORDERED: METHYLPREDNISOLONE SOD SUCC 125 MG/2 ML VIAL IV STA (05:04)
[2019-05-10] MEDS ORDERED: MORPHINE SULFATE 4 MG/ML CPJ (NOT FOR IM USE) IV STA (05:04)
[2019-05-10] MEDS ORDERED: SUCCINYLCHOLINE CHLORIDE 200MG/10ML IV ONE (05:15)
[2019-05-10] MEDS ORDERED: MAGNESIUM 2 G PREMIX 50 ML IV ONE (05:15)
[2019-05-10] MEDS ORDERED: PROPOFOL 10MG/ML 100ML 100 ML IV ONE (05:15)
[2019-05-10] MEDS ORDERED: ETOMIDATE 2MG/ML 10ML VIAL IV ONE (05:15)
[2019-05-10] MEDS ORDERED: ALBUTEROL (0.083%) 2.5MG/3ML NEB HHN SCH (05:30)
[2019-05-10 05:38] LABS: BASOPHILS % 0.9 % (0.0-2.0); EOSINOPHILS % 0.7 % (0.0-5.0); HEMATOCRIT. 31.4 % (42.0-52.0); HEMOGLOBIN. 10.7 g/dL (14.0-18.0); LYMPHOCYTES % 18.7 % (20.0-50.0); MEAN CORPUSCULAR HEMOGLOBIN 30.6 pg (28.0-32.0); MEAN CORPUSCULAR VOLUME 89.6 fL (80.0-94.0); MONOCYTES % 4.5 % (2.0-8.0); NEUTROPHILS % 75.2 % (40.0-76.0); PLATELET 313 x1000/uL (130-400); RED BLOOD CELL COUNT 3.51 mill/uL (4.7-6.1); RED CELL DISTRIBUTION WIDTH 13.6 % (11.6-14.6)
[2019-05-10 05:44] LABS: CHLORIDE 106 mEq/L (98-107)
[2019-05-10] MEDS ORDERED: MEROPENEM 1,000 MG in SODIUM CHLORIDE 0.9% 100 ML IV ONE (05:45)
[2019-05-10] MEDS ORDERED: VANCOMYCIN 1 G PREMIX 200 ML IV ONE (05:45)
[2019-05-10] MEDS ORDERED: SODIUM CHLORIDE 0.9% 1000ML BAG (SEPSIS BOLUS) IV ONE (05:45)
[2019-05-10 06:12] LABS: BG BASE EXCESS -7.8 mmol/L (-2.0-2.0); BG CARBOXYHEMOGLOBIN 0.1 % (0.5-1.5); BG DEOXYHEMOGLOBIN 1.8 % (0.0-5.0); BG FRACTION INSPIRED OXYGEN 100; BG HCO3 ACT 20.2 mmol/L (22.0-26.0); BG METHEMOGLOBIN 0.3 % (0.0-1.5); BG OXYGEN SATURATION 98.2 % (92.0-98.5); BG OXYHEMOGLOBIN 97.8 % (94.0-97.0); BG PCO2 52.3 mmHg (35.0-45.0); BG PH 7.205 (7.350-7.450); BG PO2 155.6 mmHg (75.0-100.0); BG SAMPLE SITE LEFT BRACHIAL; BG TIDAL VOLUME(mL) 500 mL; BG TOTAL HEMOGLOBIN 11.5 g/dL (12.0-18.0); BG VENT MODE VENT - A/C; BG VENT RATE 16 set
[2019-05-10] MEDS ORDERED: ACETAMINOPHEN 325MG TABLET PO PRN (09:00)
[2019-05-10] MEDS ORDERED: FUROSEMIDE 40MG/4ML VIAL IVP SCH (09:00)
[2019-05-10] MEDS ORDERED: ONDANSETRON HCL 4MG/2ML INJ IV PRN (09:00)
[2019-05-10] MEDS: PANTOPRAZOLE SODIUM 40 MG/VIAL IV SCH (10:04)
[2019-05-10] MEDS: AMLODIPINE 5MG TABLET PO SCH ×2 (10:04→21:00)
[2019-05-10 10:36] LABS: CLARITY URINE CLOUDY (CLEAR); COLOR URINE YELLOW (YELLOW); KETONES URINE NEGATIVE (NEGATIVE); LEUKOCYTE ESTERASE URINE NEGATIVE (NEGATIVE); NITRITE URINE NEGATIVE (NEGATIVE); OCCULT BLOOD URINE 3+ (NEGATIVE); PH URINE 5.5 (4.5-8.0); PROTEIN URINE 2+ (NEGATIVE); SPECIFIC GRAVITY URINE 1.019 (1.005-1.030)
[2019-05-10 11:10] LABS: METHADONE URINE SCREEN NEGATIVE (NEGATIVE)
[2019-05-10 11:11] LABS: *AMPHETAMINES SCREEN URINE PRESUMTIVE POSITIVE (NEGATIVE); *BARBITURATES SCREEN URINE NEGATIVE (NEGATIVE); *BENZODIAZEPINES SCREEN URINE NEGATIVE (NEGATIVE); *COCAINE SCREEN URINE NEGATIVE (NEGATIVE); CANNABINOID URINE SCREEN PRESUMTIVE POSITIVE (NEGATIVE); OPIATES URINE SCREEN PRESUMTIVE POSITIVE (NEGATIVE); PHENCYCLIDINE URINE SCREEN PRESUMTIVE POSITIVE (NEGATIVE)
[2019-05-10 11:21] LABS: BG BASE EXCESS -2.8 mmol/L (-2.0-2.0); BG CARBOXYHEMOGLOBIN 0.2 % (0.5-1.5); BG DEOXYHEMOGLOBIN 1.2 % (0.0-5.0); BG FRACTION INSPIRED OXYGEN 60; BG HCO3 ACT 23.5 mmol/L (22.0-26.0); BG METHEMOGLOBIN 0.1 % (0.0-1.5); BG OXYGEN SATURATION 98.8 % (92.0-98.5); BG OXYHEMOGLOBIN 98.5 % (94.0-97.0); BG PCO2 47.5 mmHg (35.0-45.0); BG PH 7.313 (7.350-7.450); BG SAMPLE SITE RIGHT RADIAL; BG TIDAL VOLUME(mL) 500 mL; BG TOTAL HEMOGLOBIN 11.6 g/dL (12.0-18.0); BG VENT MODE VENT - A/C; BG VENT RATE 20 set
[2019-05-10] MEDS: IPRATROPIUM BROMIDE (0.02%) 0.5MG/2.5ML NEB HHN SCH ×3 (12:09→20:33)
[2019-05-10] MEDS: ENALAPRIL 2.5MG/2ML VIAL 2ML IV SCH ×2 (12:49→18:57)
[2019-05-10] MEDS: METHYLPREDNISOLONE SOD SUCC 40 MG/ML VIAL IV SCH ×2 (13:07→22:11)
[2019-05-10] MEDS: MEROPENEM 1,000 MG in SODIUM CHLORIDE 0.9% 100 ML IV SCH ×2 (13:07→22:14)
[2019-05-10] MEDS: PROPOFOL 10MG/ML 100ML 100 ML IV PRN ×2 (16:39→20:27)
[2019-05-10] MEDS: FUROSEMIDE 40MG/4ML VIAL IVP SCH (17:37)
[2019-05-10] MEDS: FENTANYL CITRATE/PF 500 MCG in SODIUM CHLORIDE 0.9% 40 ML IV PRN (17:39)
[2019-05-10] MEDS ORDERED: VANCOMYCIN 1250MG in DEXTROSE 5% WATER 250ML IV SCH (18:00)
[2019-05-10] MEDS: HYDRALAZINE HCL 100MG TABLET PO SCH (21:00)
[2019-05-10] MEDS: ENOXAPARIN 30MG/0.3ML SYR SUBCUT SCH (22:13)
[2019-05-11] VITALS (93 sets, daily range): BP systolic 64–159; BP diastolic 50–108
[2019-05-11] MEDS: FENTANYL CITRATE/PF 500 MCG in SODIUM CHLORIDE 0.9% 40 ML IV PRN (00:40)
[2019-05-11] MEDS: IPRATROPIUM BROMIDE (0.02%) 0.5MG/2.5ML NEB HHN SCH ×6 (01:05→20:47)
[2019-05-11] MEDS ORDERED: NOREPINEPHRINE 16 MG in DEXT 5% WATER 484 ML IV PRN (01:51)
[2019-05-11] MEDS: PROPOFOL 10MG/ML 100ML 100 ML IV PRN ×4 (02:23→21:19)
[2019-05-11] MEDS: ENALAPRIL 2.5MG/2ML VIAL 2ML IV SCH ×2 (03:00→10:50)
[2019-05-11 05:53] LABS: CHLORIDE 106 mEq/L (98-107)
[2019-05-11 06:53] LABS: HEMOGLOBIN. 10.6 g/dL (14.0-18.0); MEAN CORPUSCULAR HEMOGLOBIN 31.6 pg (28.0-32.0); MEAN CORPUSCULAR VOLUME 89.3 fL (80.0-94.0); MEAN PLATELET VOLUME 9.5 fl (7.4-10.4); PLATELET 278 x1000/uL (130-400); RED BLOOD CELL COUNT 3.36 mill/uL (4.7-6.1)
[2019-05-11] MEDS: MEROPENEM 1,000 MG in SODIUM CHLORIDE 0.9% 100 ML IV SCH ×2 (07:20→15:03)
[2019-05-11] MEDS: FENTANYL CITRATE/PF 1,000 MCG in SODIUM CHLORIDE 0.9% 80 ML IV PRN ×3 (07:21→21:15)
[2019-05-11 07:38] LABS: BG BASE EXCESS -0.2 mmol/L (-2.0-2.0); BG CARBOXYHEMOGLOBIN 0.3 % (0.5-1.5); BG DEOXYHEMOGLOBIN 1.4 % (0.0-5.0); BG FRACTION INSPIRED OXYGEN 40; BG HCO3 ACT 26.7 mmol/L (22.0-26.0); BG METHEMOGLOBIN 0.3 % (0.0-1.5); BG OXYGEN SATURATION 98.6 % (92.0-98.5); BG PCO2 54.3 mmHg (35.0-45.0); BG PO2 178.8 mmHg (75.0-100.0); BG SAMPLE SITE RIGHT BRACHIAL; BG TIDAL VOLUME(mL) 500 mL; BG TOTAL HEMOGLOBIN 11.4 g/dL (12.0-18.0); BG VENT MODE VENT - A/C; BG VENT RATE 20 set
[2019-05-11] MEDS: METHYLPREDNISOLONE SOD SUCC 40 MG/ML VIAL IV SCH ×3 (07:47→21:15)
[2019-05-11] MEDS: FUROSEMIDE 40MG/4ML VIAL IVP SCH ×2 (08:19→16:32)
[2019-05-11] MEDS: PANTOPRAZOLE SODIUM 40 MG/VIAL IV SCH (08:19)
[2019-05-11] MEDS: HYDRALAZINE HCL 100MG TABLET PO SCH (08:19)
[2019-05-11] MEDS: AMLODIPINE 5MG TABLET PO SCH (08:20)
[2019-05-11 09:24] LABS: PLATELET ESTIMATE NORMAL
[2019-05-11] MEDS ORDERED: LORAZEPAM 2MG/ML CPJ IV PRN (09:30)
[2019-05-11] MEDS: QUETIAPINE FUMARATE 25MG TABLET PO SCH ×2 (10:45→20:15)
[2019-05-11] MEDS: AMLODIPINE 2.5MG TABLET NG SCH (14:00)
[2019-05-11] MEDS: ENOXAPARIN 30MG/0.3ML SYR SUBCUT SCH (20:16)
[2019-05-11] MEDS ORDERED: AMLODIPINE 2.5MG TABLET NG SCH (21:00)
[2019-05-12] VITALS (47 sets, daily range): BP systolic 86–132; BP diastolic 41–95
[2019-05-12] MEDS: IPRATROPIUM BROMIDE (0.02%) 0.5MG/2.5ML NEB HHN SCH ×6 (00:38→20:45)
[2019-05-12] MEDS: MEROPENEM 1,000 MG in SODIUM CHLORIDE 0.9% 100 ML IV SCH ×2 (02:24→15:30)
[2019-05-12 05:11] LABS: HEMOGLOBIN. 10.1 g/dL (14.0-18.0); MEAN CORPUSCULAR HEMOGLOBIN 30.9 pg (28.0-32.0); MEAN CORPUSCULAR VOLUME 88.6 fL (80.0-94.0); MEAN PLATELET VOLUME 8.4 fl (7.4-10.4); PLATELET 300 x1000/uL (130-400); RED BLOOD CELL COUNT 3.27 mill/uL (4.7-6.1); RED CELL DISTRIBUTION WIDTH 14.4 % (11.6-14.6)
[2019-05-12] MEDS: METHYLPREDNISOLONE SOD SUCC 40 MG/ML VIAL IV SCH ×2 (05:21→17:23)
[2019-05-12 05:33] LABS: CHLORIDE 106 mEq/L (98-107)
[2019-05-12 05:45] LABS: CREATINE KINASE 54 IU/L (39-308); PHOSPHORUS 4.9 mg/dL (2.5-4.9)
[2019-05-12] MEDS: PROPOFOL 10MG/ML 100ML 100 ML IV PRN ×4 (06:16→21:24)
[2019-05-12] MEDS: PANTOPRAZOLE SODIUM 40 MG/VIAL IV SCH (08:01)
[2019-05-12] MEDS: FUROSEMIDE 40MG/4ML VIAL IVP SCH ×2 (08:01→17:23)
[2019-05-12] MEDS: QUETIAPINE FUMARATE 25MG TABLET PO SCH ×2 (08:01→21:19)
[2019-05-12 08:21] LABS: BG BASE EXCESS 4.9 mmol/L (-2.0-2.0); BG CARBOXYHEMOGLOBIN 0.3 % (0.5-1.5); BG DEOXYHEMOGLOBIN 0.9 % (0.0-5.0); BG FRACTION INSPIRED OXYGEN 40; BG HCO3 ACT 30.7 mmol/L (22.0-26.0); BG METHEMOGLOBIN 0.5 % (0.0-1.5); BG OXYGEN SATURATION 99.1 % (92.0-98.5); BG OXYHEMOGLOBIN 98.3 % (94.0-97.0); BG PCO2 50.6 mmHg (35.0-45.0); BG PH 7.401 (7.350-7.450); BG PO2 218.8 mmHg (75.0-100.0); BG SAMPLE SITE RIGHT BRACHIAL; BG TIDAL VOLUME(mL) 500 mL; BG TOTAL HEMOGLOBIN 12.6 g/dL (12.0-18.0); BG VENT MODE VENT - A/C; BG VENT RATE 22 set
[2019-05-12] MEDS: AMLODIPINE 2.5MG TABLET NG SCH (08:23)
[2019-05-12 09:00] LABS: PLATELET ESTIMATE NORMAL
[2019-05-12] MEDS ORDERED: VANCOMYCIN 1 G PREMIX 200 ML IV NR (10:00)
[2019-05-12] MEDS: FENTANYL CITRATE/PF 1,000 MCG in SODIUM CHLORIDE 0.9% 80 ML IV PRN (18:07)
[2019-05-12] MEDS: ENOXAPARIN 30MG/0.3ML SYR SUBCUT SCH (21:20)
[2019-05-13] VITALS (46 sets, daily range): BP systolic 96–140; BP diastolic 51–100
[2019-05-13] MEDS: IPRATROPIUM BROMIDE (0.02%) 0.5MG/2.5ML NEB HHN SCH ×6 (00:56→20:39)
[2019-05-13] MEDS: MEROPENEM 1,000 MG in SODIUM CHLORIDE 0.9% 100 ML IV SCH ×2 (02:31→15:06)
[2019-05-13 05:29] LABS: CHLORIDE 107 mEq/L (98-107)
[2019-05-13 05:35] LABS: PHOSPHORUS 4.6 mg/dL (2.5-4.9)
[2019-05-13] MEDS: METHYLPREDNISOLONE SOD SUCC 40 MG/ML VIAL IV SCH ×2 (05:48→17:21)
[2019-05-13] MEDS: PROPOFOL 10MG/ML 100ML 100 ML IV PRN ×4 (05:50→22:35)
[2019-05-13 07:55] LABS: BG BASE EXCESS 6.2 mmol/L (-2.0-2.0); BG CARBOXYHEMOGLOBIN 0.5 % (0.5-1.5); BG HCO3 ACT 29.7 mmol/L (22.0-26.0); BG METHEMOGLOBIN 0.3 % (0.0-1.5); BG OXYHEMOGLOBIN 98.2 % (94.0-97.0); BG PCO2 38.9 mmHg (35.0-45.0); BG PH 7.501 (7.350-7.450); BG PO2 188.5 mmHg (75.0-100.0); BG SAMPLE SITE RIGHT RADIAL; BG TIDAL VOLUME(mL) 500 mL; BG TOTAL HEMOGLOBIN 11.6 g/dL (12.0-18.0); BG VENT MODE VENT - A/C; BG VENT RATE 22 set
[2019-05-13] MEDS: AMLODIPINE 2.5MG TABLET NG SCH (08:42)
[2019-05-13] MEDS: PANTOPRAZOLE SODIUM 40 MG/VIAL IV SCH (08:47)
[2019-05-13] MEDS: QUETIAPINE FUMARATE 25MG TABLET PO SCH ×2 (08:47→20:47)
[2019-05-13] MEDS: FUROSEMIDE 40MG/4ML VIAL IVP SCH (08:47)
[2019-05-13 09:32] LABS: HEMATOCRIT. 31.8 % (42.0-52.0); HEMOGLOBIN. 11.1 g/dL (14.0-18.0); MEAN CORPUSCULAR HEMOGLOBIN 31.2 pg (28.0-32.0); MEAN PLATELET VOLUME 8.1 fl (7.4-10.4); PLATELET 319 x1000/uL (130-400); RED BLOOD CELL COUNT 3.58 mill/uL (4.7-6.1); RED CELL DISTRIBUTION WIDTH 14.1 % (11.6-14.6)
[2019-05-13] MEDS ORDERED: FENTANYL CITRATE/PF 500 MCG in SODIUM CHLORIDE 0.9% 40 ML IV PRN (09:45)
[2019-05-13 10:11] LABS: PLATELET ESTIMATE NORMAL
[2019-05-13] MEDS: VANCOMYCIN 1 G PREMIX 200 ML IV SCH (10:45)
[2019-05-13] MEDS: BLOOD SUGAR DIAGNOSTIC STRIP TEST SCH (17:22)
[2019-05-13] MEDS: INSULIN LISPRO 100 UNITS/ML SUBCUT SCH (17:23)
[2019-05-13] MEDS: ENOXAPARIN 40MG/0.4ML SYR SUBCUT SCH (20:47)
[2019-05-14] VITALS (47 sets, daily range): BP systolic 89–194; BP diastolic 46–129
[2019-05-14] MEDS: IPRATROPIUM BROMIDE (0.02%) 0.5MG/2.5ML NEB HHN SCH ×6 (00:34→20:43)
[2019-05-14] MEDS: PROPOFOL 10MG/ML 100ML 100 ML IV PRN (03:37)
[2019-05-14] MEDS: MEROPENEM 1,000 MG in SODIUM CHLORIDE 0.9% 100 ML IV SCH ×2 (03:37→14:57)
[2019-05-14] MEDS: FENTANYL CITRATE/PF 1,000 MCG in SODIUM CHLORIDE 0.9% 80 ML IV PRN (04:05)
[2019-05-14 05:13] LABS: HEMATOCRIT. 28.2 % (42.0-52.0); MEAN CORPUSCULAR HEMOGLOBIN 31.9 pg (28.0-32.0); MEAN CORPUSCULAR VOLUME 90.1 fL (80.0-94.0); MEAN PLATELET VOLUME 8.3 fl (7.4-10.4); PLATELET 293 x1000/uL (130-400); RED BLOOD CELL COUNT 3.13 mill/uL (4.7-6.1); RED CELL DISTRIBUTION WIDTH 14.2 % (11.6-14.6)
[2019-05-14] MEDS: BLOOD SUGAR DIAGNOSTIC STRIP TEST SCH ×2 (05:16→18:18)
[2019-05-14] MEDS: METHYLPREDNISOLONE SOD SUCC 40 MG/ML VIAL IV SCH ×2 (05:16→18:18)
[2019-05-14] MEDS: INSULIN LISPRO 100 UNITS/ML SUBCUT SCH ×2 (05:17→18:00)
[2019-05-14 05:29] LABS: CHLORIDE 108 mEq/L (98-107)
[2019-05-14 05:42] LABS: PHOSPHORUS 4.5 mg/dL (2.5-4.9)
[2019-05-14 07:23] LABS: BG CARBOXYHEMOGLOBIN 0.1 % (0.5-1.5); BG DEOXYHEMOGLOBIN 1.7 % (0.0-5.0); BG FRACTION INSPIRED OXYGEN 35; BG HCO3 ACT 32.3 mmol/L (22.0-26.0); BG METHEMOGLOBIN 0.2 % (0.0-1.5); BG OXYGEN SATURATION 98.3 % (92.0-98.5); BG PCO2 43.6 mmHg (35.0-45.0); BG PH 7.487 (7.350-7.450); BG PO2 138.1 mmHg (75.0-100.0); BG SAMPLE SITE RIGHT BRACHIAL; BG TIDAL VOLUME(mL) 500 mL; BG TOTAL HEMOGLOBIN 10.4 g/dL (12.0-18.0); BG VENT MODE VENT - A/C; BG VENT RATE 18 set
[2019-05-14] MEDS: PANTOPRAZOLE SODIUM 40 MG/VIAL IV SCH (08:08)
[2019-05-14] MEDS: FUROSEMIDE 40MG/4ML VIAL IVP SCH (08:08)
[2019-05-14] MEDS: AMLODIPINE 2.5MG TABLET NG SCH (08:09)
[2019-05-14] MEDS: QUETIAPINE FUMARATE 25MG TABLET PO SCH ×2 (08:10→21:00)
[2019-05-14 08:33] LABS: PLATELET ESTIMATE NORMAL
[2019-05-14] MEDS ORDERED: LACTULOSE 20G/30ML UDC PO SCH (10:30)
[2019-05-14] MEDS: VANCOMYCIN 1 G PREMIX 200 ML IV SCH (11:03)
[2019-05-14] MEDS: DOCUSATE SODIUM 100MG CAPSULE PO SCH ×2 (11:03→18:18)
[2019-05-14 12:38] LABS: BG BASE EXCESS 6.5 mmol/L (-2.0-2.0); BG CARBOXYHEMOGLOBIN 0.7 % (0.5-1.5); BG DEOXYHEMOGLOBIN 1.5 % (0.0-5.0); BG FRACTION INSPIRED OXYGEN 35; BG HCO3 ACT 31.5 mmol/L (22.0-26.0); BG METHEMOGLOBIN 0.3 % (0.0-1.5); BG OXYGEN SATURATION 98.5 % (92.0-98.5); BG OXYHEMOGLOBIN 97.5 % (94.0-97.0); BG PCO2 47.1 mmHg (35.0-45.0); BG PH 7.443 (7.350-7.450); BG PO2 140.5 mmHg (75.0-100.0); BG PRESSURE SUPPORT 8; BG SAMPLE SITE RIGHT BRACHIAL; BG TOTAL HEMOGLOBIN 11.8 g/dL (12.0-18.0); BG VENT MODE VENT - CPAP
[2019-05-14] MEDS: ENOXAPARIN 40MG/0.4ML SYR SUBCUT SCH (21:00)
[2019-05-14] MEDS ORDERED: METOCLOPRAMIDE HCL 10MG TABLET PO PRN (21:30)
[2019-05-14] MEDS ORDERED: METOCLOPRAMIDE HCL 10MG/2ML VIAL IV PRN (22:00)
[2019-05-14] MEDS: LABETALOL 5MG/ML SYR 20 MG/4 ML SYRINGE IV PRN (22:39)
[2019-05-15] VITALS (32 sets, daily range): BP systolic 84–202; BP diastolic 45–121
[2019-05-15] MEDS: IPRATROPIUM BROMIDE (0.02%) 0.5MG/2.5ML NEB HHN SCH ×6 (00:29→20:48)
[2019-05-15] MEDS: MEROPENEM 1,000 MG in SODIUM CHLORIDE 0.9% 100 ML IV SCH ×2 (02:42→14:44)
[2019-05-15] MEDS: METHYLPREDNISOLONE SOD SUCC 40 MG/ML VIAL IV SCH (05:17)
[2019-05-15] MEDS: INSULIN LISPRO 100 UNITS/ML SUBCUT SCH ×2 (05:27→18:00)
[2019-05-15] MEDS: BLOOD SUGAR DIAGNOSTIC STRIP TEST SCH ×2 (05:28→17:14)
[2019-05-15 06:11] LABS: HEMATOCRIT. 37.2 % (42.0-52.0); HEMOGLOBIN. 12.7 g/dL (14.0-18.0); MEAN CORPUSCULAR HEMOGLOBIN 30.8 pg (28.0-32.0); MEAN CORPUSCULAR VOLUME 90.1 fL (80.0-94.0); MEAN PLATELET VOLUME 8.2 fl (7.4-10.4); PLATELET 321 x1000/uL (130-400); RED BLOOD CELL COUNT 4.12 mill/uL (4.7-6.1); RED CELL DISTRIBUTION WIDTH 13.8 % (11.6-14.6)
[2019-05-15 06:44] LABS: CHLORIDE 101 mEq/L (98-107)
[2019-05-15 06:54] LABS: PHOSPHORUS 5.3 mg/dL (2.5-4.9)
[2019-05-15] MEDS: LABETALOL 5MG/ML SYR 20 MG/4 ML SYRINGE IV PRN (07:12)
[2019-05-15 08:26] LABS: PLATELET ESTIMATE NORMAL
[2019-05-15] MEDS: FUROSEMIDE 40MG/4ML VIAL IVP SCH (08:44)
[2019-05-15] MEDS: QUETIAPINE FUMARATE 25MG TABLET PO SCH ×2 (08:44→20:38)
[2019-05-15] MEDS: PANTOPRAZOLE SODIUM 40 MG/VIAL IV SCH (08:44)
[2019-05-15] MEDS: DOCUSATE SODIUM 100MG CAPSULE PO SCH ×2 (08:44→17:14)
[2019-05-15] MEDS: AMLODIPINE 2.5MG TABLET NG SCH (09:00)
[2019-05-15] MEDS: AMLODIPINE 5MG TABLET NG SCH ×2 (11:26→17:14)
[2019-05-15] MEDS: VANCOMYCIN 1 G PREMIX 200 ML IV SCH (11:26)
[2019-05-15] MEDS: LOSARTAN POTASSIUM 50 MG TABLET PO SCH (11:26)
[2019-05-15] MEDS: CLONIDINE 0.1MG TABLET PO PRN ×2 (14:52→21:42)
[2019-05-15] MEDS: ENOXAPARIN 40MG/0.4ML SYR SUBCUT SCH (20:38)
[2019-05-16] VITALS: BP 116/78
[2019-05-16] MEDS: IPRATROPIUM BROMIDE (0.02%) 0.5MG/2.5ML NEB HHN SCH ×4 (00:30→12:39)
[2019-05-16] MEDS: MEROPENEM 1,000 MG in SODIUM CHLORIDE 0.9% 100 ML IV SCH (02:49)
[2019-05-16 04:00] VITALS: BP 119/84
[2019-05-16] MEDS: BLOOD SUGAR DIAGNOSTIC STRIP TEST SCH (06:00)
[2019-05-16 07:05] LABS: CHLORIDE 99 mEq/L (98-107)
[2019-05-16 07:26] LABS: PHOSPHORUS 2.8 mg/dL (2.5-4.9)
[2019-05-16 07:31] LABS: BASOPHILS % 0.3 % (0.0-2.0); EOSINOPHILS % 1.2 % (0.0-5.0); HEMATOCRIT. 38.8 % (42.0-52.0); HEMOGLOBIN. 13.2 g/dL (14.0-18.0); LYMPHOCYTES % 13.1 % (20.0-50.0); MEAN CORPUSCULAR HEMOGLOBIN 30.5 pg (28.0-32.0); MEAN CORPUSCULAR VOLUME 89.3 fL (80.0-94.0); MEAN PLATELET VOLUME 8.8 fl (7.4-10.4); MONOCYTES % 9.9 % (2.0-8.0); NEUTROPHILS % 75.5 % (40.0-76.0); PLATELET 355 x1000/uL (130-400); RED BLOOD CELL COUNT 4.35 mill/uL (4.7-6.1); RED CELL DISTRIBUTION WIDTH 13.5 % (11.6-14.6)
[2019-05-16 08:00] VITALS: BP 130/99
[2019-05-16] MEDS: FUROSEMIDE 40MG/4ML VIAL IVP SCH (08:08)
[2019-05-16] MEDS: AMLODIPINE 5MG TABLET NG SCH (08:08)
[2019-05-16] MEDS: PANTOPRAZOLE SODIUM 40 MG/VIAL IV SCH (08:08)
[2019-05-16] MEDS: DOCUSATE SODIUM 100MG CAPSULE PO SCH (08:08)
[2019-05-16] MEDS: LOSARTAN POTASSIUM 50 MG TABLET PO SCH (08:08)
[2019-05-16] MEDS: QUETIAPINE FUMARATE 25MG TABLET PO SCH (08:08)
[2019-05-16] MEDS: INSULIN LISPRO 100 UNITS/ML SUBCUT SCH (08:16)
[2019-05-16 09:00] VITALS: BP 130/88
[2019-05-16] MEDS ORDERED: PREDNISONE 20MG TABLET PO SCH (09:00)
[2019-05-16] MEDS: VANCOMYCIN 1 G PREMIX 200 ML IV SCH (11:00)
[2019-05-16 12:00] VITALS: BP 104/74
[2019-05-16] MEDS ORDERED: CARVEDILOL 3.125 MG TABLET PO SCH (12:00)
[2019-05-16] MEDS ORDERED: CARV6.2548 MT (12:27)
[2019-05-16] MEDS ORDERED: FLUT1DIS3 INH (12:27)
[2019-05-16] MEDS ORDERED: ALBU18HF2 IH (12:27)
[2019-05-16] MEDS ORDERED: FURO-151 MT (12:27)
[2019-05-16] MEDS ORDERED: LOSA50TA41 MT (12:27)
[2019-05-16 13:40] VITALS: BP 125/78
[2019-05-17] MEDS ORDERED: VANCOMYCIN 1 G PREMIX 200 ML IV SCH (05:00)
== END 2019-05-16 14:23 | disposition home or self-care (01) | DRG 720 ==
LOC: ER 04:47 → CVICU 05:42 → EDBEDREQSVC 05:46 → EDBEDREQTM 05:46 → EDBEDREQ 05:46 → ENRESERV 07:29 → 6WST 05-11 00:01 → CVICU 05-11 00:15 → 7WST 05-15 22:43
PROVIDERS: ADMIT Internal Medicine; ATTEND Internal Medicine
PROC: 5A1955Z Respiratory Ventilation, Greater than 96 Consecutive Hours (ICD-10-PCS; principal; 2019-05-10)
PROC: 0BH17EZ Insertion of Endotracheal Airway into Trachea, Via Natural or Artificial Opening (ICD-10-PCS; 2019-05-10)
DX: A41.9 Sepsis, unspecified organism (principal); N17.0 Acute kidney failure with tubular necrosis; J96.01 Acute respiratory failure with hypoxia; J96.02 Acute respiratory failure with hypercapnia; T59.891A Toxic effect of other specified gases, fumes and vapors, accidental (unintentional), initial encounter; I50.43 Acute on chronic combined systolic (congestive) and diastolic (congestive) heart failure; R65.21 Severe sepsis with septic shock; I13.0 Hypertensive heart and chronic kidney disease with heart failure and stage 1 through stage 4 chronic kidney disease, or unspecified chronic kidney disease; N18.3 Chronic kidney disease, stage 3 (moderate); I42.0 Dilated cardiomyopathy; J68.0 Bronchitis and pneumonitis due to chemicals, gases, fumes and vapors; I34.0 Nonrheumatic mitral (valve) insufficiency; I27.20 Pulmonary hypertension, unspecified; E11.22 Type 2 diabetes mellitus with diabetic chronic kidney disease; F17.210 Nicotine dependence, cigarettes, uncomplicated; D64.9 Anemia, unspecified; E87.2 Acidosis; R74.0 Nonspecific elevation of levels of transaminase and lactic acid dehydrogenase [LDH]; F16.129 Hallucinogen abuse with intoxication, unspecified; F14.90 Cocaine use, unspecified, uncomplicated; Z78.1 Physical restraint status; Z88.0 Allergy status to penicillin; Z82.49 Family history of ischemic heart disease and other diseases of the circulatory system; Z91.19 Patient's noncompliance with other medical treatment and regimen; Z87.01 Personal history of pneumonia (recurrent); Z79.82 Long term (current) use of aspirin; Z79.899 Other long term (current) drug therapy; Y92.89 Other specified places as the place of occurrence of the external cause
CPT/HCPCS: 31500; 36415; 36600; 71045; 76770; 80048; 80053; 80202; 80305; 81003; 82375; 82550; 82805; 82962; 83605; 83735; 83880; 84100; 84145; 84478; 84484; 85025; 87070; 92610; 93005; 93306; 93970; 94002; 94003; 94640; 97162; 99285; A6261; C1725; C9113; J1650; J1940; J2060; J2185; J2270; J2405; J2704; J2765; J2920; J2930; J3010; J3370; J3475; J3490; J7030; J7050; J7060; J7512; A4315

== ENCOUNTER 2019-06-03 01:17 | Emergency (ER) | payer MEDICAID ==
[~2019-06-03] VITALS: Ht 182.9 cm; Wt 78.0 kg
[~2019-06-03 01:17] MED LIST changes: +ALBU18HF2 IH; +CARV6.2548 MT; +FLUT1DIS3 INH; +FURO-151 MT; +LOSA50TA41 MT; -OMEP40CA12 MT; +OMEP40CA34 MT
[2019-06-03] MEDS ORDERED: IBUPROFEN 600MG TABLET PO SCH (05:20)
[2019-06-03 05:38] VITALS: BP 145/73
== END 2019-06-03 06:06 | disposition home or self-care (01) ==
LOC: ER 01:17
DX: R60.0 Localized edema (principal); J44.9 Chronic obstructive pulmonary disease, unspecified; I51.9 Heart disease, unspecified; Z88.0 Allergy status to penicillin
CPT/HCPCS: 73590; 93971; 99283